=== PATIENT | male | born 1960 | race Caucasian/White ===

== ENCOUNTER 2016-12-16 08:37 | Inpatient (IN) | payer OTHER ==
[2016-12-07 10:33] VITALS: BMI 23.0
[2016-12-07 11:40] LABS: BASO % 0.2 %; BASO ABS # 0.01 K/uL (0-0.2); COMPLETE YES; EOS % 3.5 %; HEMATOCRIT 38.4 % (42-52); LYMPH % 26.2 %; LYMPH ABS # 1.36 K/uL (1.2-3.4); MEAN CELL VOLUME 85.9 fL (80-100); MEAN CORPUSCULAR HEMOGLOBIN 32.2 pg (25-34); MEAN CORPUSCULAR HGB CONC 37.5 g/dl (32-36); MEAN PLATELET VOLUME 9.3 fL (7.4-10.4); MONO % 8.8 %; NEUT % 61.3 %; PLATELET COUNT 204 K/uL (130-400); RED BLOOD COUNT 4.47 M/uL (4.7-6.1)
[2016-12-07 11:46] LABS: URINE APPEARANCE CLEAR (CLEAR); URINE BILIRUBIN NEG (NEG); URINE COLOR YELLOW; URINE NITRITE NEG (NEG); URINE SPECIFIC GRAVITY 1.026 (1.000-1.030); UROBILINOGEN NEG (NEG)
[2016-12-07 11:51] LABS: MANUAL MICROSCOPIC REQUIRED? NO; REVIEW REQ? NO
--- NOTE | 2016-12-07 11:51 | DIAGNOSTIC IMAGING REPORT ---
TWO VIEW CHEST CLINICAL HISTORY: Preoperative examination. FINDINGS: PA and lateral chest radiographs are obtained. No prior studies are available for comparison at the time of dictation. The cardiomediastinal silhouette is unremarkable. The lungs and pleural spaces are clear. There is no pneumothorax. The bony thorax appears intact. IMPRESSION: No active disease in the chest. Electronically signed by: Ismael Johnson M.D. 12/07/2016 11:50 AM Dictated Date/Time: 12/07/2016 11:50 AM
[2016-12-07 12:12] LABS: BUN/CREATININE RATIO 18.7 (10-20); CALCIUM 8.7 mg/dl (8.5-10.1); CREATININE 0.93 mg/dl (0.60-1.40); POTASSIUM 4.3 mmol/L (3.5-5.1)
[~2016-12-16] VITALS: Ht 185.4 cm; Wt 80.4 kg
[2016-12-16] VITALS (17 sets, daily range): BP systolic 127–152; BP diastolic 75–94; PULSE 59–93; TEMP 36.3–36.6; O2SAT 96–100; Ht 185.4 cm; Wt 80.4 kg
[~2016-12-16 08:37] MED LIST: CEFAZOLIN 2000 MG/60 ML D5W IV SCH; LACTATED RINGER'S 1000ML 1,000 ML IV SCH; PROPOFOL IV EMULSION 10 MG/ML 100 ML VIAL IV ONE
--- NOTE | 2016-12-16 09:16 | History & Physical Bridge Note ---
H&P Re-Evaluation Bridge Note: I have examined the patient, reviewed the History & Physical and in the interval since the performance of the History & Physical I have noted the following changes of clinical significance: No changes noted
--- NOTE | 2016-12-16 09:17 | History and Physical ---
History & Physical Date Dec 16, 2016. Chief Complaint neck and arm pain History of Present Illness The patient is a 56 year old male with complaints of Additional History Hepatic Disease: No Endocrine Disorder: No Kidney Disease: No Hypertension: No Heart Disease: No Bleeding Tendencies: No Infectious Diseases: No Allergies Coded Allergies: Acetaminophen (Verified Adverse Reaction, Unknown, SEVERE NAUSEA AND VOMITING, 12/16/16) Cephalexin (Verified Adverse Reaction, Unknown, NAUSEA/GI UPSET, 12/16/16) Oxycodone (Verified Adverse Reaction, Unknown, SEVERE NAUSEA AND VOMITING , 12/16/16) Home Medications No Active Prescriptions or Reported Meds Physical Examination Skin: warm/dry, no rash Eyes: normal inspection, EOMI, sclerae normal ENT: normal ENT inspection, pharynx normal Head: normocephalic, atraumatic Neck: supple, no adenopathy, trachea midline Respiratory/Chest: lungs clear, normal breath sounds, no respiratory distress Cardiovascular: regular rate, rhythm, no edema, no murmur Abdomen / GI: normal bowel sounds, non tender Back: normal inspection Extremities: normal inspection, normal range of motion Neurologic/Psych: no motor/sensory deficits, alert, normal reflexes, oriented x 3 Diagnosis cervical stenosis Plan of Treatment cervical corpectomy C4 fusion C3-5
[2016-12-16] MEDS ORDERED: MIDAZOLAM HCL 1 MG/ML 2ML VIAL ONE (09:42)
[2016-12-16] MEDS ORDERED: FENTANYL CITRATE INJ 50 MCG/1 ML 2 ML VIAL ONE ×2 (09:42→10:27)
[2016-12-16] MEDS ORDERED: REMIFENTANIL 1 MG VIAL ONE ×3 (09:43→11:50)
[2016-12-16] MEDS ORDERED: SODIUM CHLORIDE 0.9% PF 50 ML VIAL ONE (09:44)
[2016-12-16] MEDS ORDERED: BACITRACIN 50000 UNIT VIAL ONE (09:44)
[2016-12-16] MEDS ORDERED: NURSING VERBAL MED ORDER ONE (09:54)
[2016-12-16] MEDS ORDERED: CLINDAMYCIN 600 MG/54 ML D5W IV ONE (09:54)
[2016-12-16] MEDS ORDERED: MEPERIDINE HCL 25 MG/ML CARP IV PRN (10:00)
[2016-12-16] MEDS ORDERED: LABETALOL HCL IV 5 MG/ML 20ML IV PRN (10:00)
[2016-12-16] MEDS ORDERED: ONDANSETRON INJ 2 MG/ML 2 ML VIAL IV PRN ×2 (10:00→12:45)
[2016-12-16] MEDS ORDERED: EpHEDrine SULFATE INJ 50 MG/ML AMP IV PRN (10:00)
[2016-12-16] MEDS ORDERED: ATROPINE SULFATE 0.1 MG/ML 5ML SYR IV PRN (10:00)
[2016-12-16] MEDS ORDERED: HYDROmorphone INJ 1 MG/ML SYR IV PRN (10:00)
[2016-12-16] MEDS ORDERED: FENTANYL CITRATE INJ 50 MCG/1 ML 2 ML VIAL IV PRN (10:00)
[2016-12-16] MEDS ORDERED: HYDROmorphone INJ 2 MG/ML SYR/VIAL ONE ×2 (10:28→12:06)
[2016-12-16] MEDS ORDERED: ROCURONIUM BROMIDE 10 MG/ML 5 ML VIAL ONE (10:54)
[2016-12-16] MEDS ORDERED: SUCCINYLCHOLINE CHLORIDE 20 MG/ML 10 ML VIAL IV ONE (10:54)
[2016-12-16] MEDS ORDERED: PROPOFOL IV EMULSION 10 MG/ML 20 ML VIAL IV ONE (10:54)
[2016-12-16] MEDS ORDERED: DEXAMETHASONE SOD INJ 4 MG/ML VIAL ONE (10:54)
[2016-12-16] MEDS ORDERED: EpHEDrine SULFATE 50MG/5ML SYR ONE ×2 (10:54→12:30)
[2016-12-16] MEDS ORDERED: LIDOCAINE HCL 2% 2 ML VIAL (20MG/ML) ONE (10:54)
[2016-12-16] MEDS ORDERED: FLOSEAL HEMOSTATIC MATRIX 5ML TOP ONE (12:25)
[2016-12-16] MEDS ORDERED: NEOSTIGMINE METHYLSULFATE 1 MG/ML 10ML VIAL ONE (12:30)
[2016-12-16] MEDS ORDERED: GLYCOPYRROLATE INJ 0.2 MG/ML VIAL ONE (12:30)
[2016-12-16] MEDS ORDERED: ONDANSETRON INJ 2 MG/ML 2 ML VIAL ONE (12:30)
[2016-12-16] MEDS: SODIUM CHLORIDE 0.9% 1000ML 1,000 ML IV SCH (12:36)
--- NOTE | 2016-12-16 12:44 | [facility] Operative Report ---
Operative Report Operative Date Dec 16, 2016. Pre-Operative Diagnosis Cervical Stenosis Post-Operative Diagnosis same Procedure(s) Performed #1 anterior cervical corpectomy C4 #2 anterior cervical arthrodesis C3 3 to C5. #3 placement of locally harvested morcellized autograft combined with Anayeli bone grafting in the interbody cage. 4 application of ro plate and screws from C3 to C5. Surgeon Dr. Casey Low [employer] Settlement Processor Surgeon(s) Allie Brooks PA-C Estimated Blood Loss 250ml Findings Severe spinal stenosis. Specimens None per surgeon Description of Procedure Patient was moved preoperative case discussed dressed with a point patient was taken back to the operative suite after undergoing successful obesity (supine position gently with a Davis headholder. Spinal cord monitoring was utilized in baselines obtained. This point the insertion was much better. No sterile fashion with the assistance of fluoroscopy identified the see for vertebral body. A transverse incision was placed along the right anterior aspect of the cervical spine overlying this region. Dissection consistent fibrocartilage cartilage and exposing the anterior cervical spine from C3 to C5. Self-retaining retractor was placed. Complete discectomy of C3 4 was then performed out to the uncovertebral joints bilaterally followed by C45. [place] distractor pins were then placed in C3 and C5 to distract across the C4 vertebral body. Complete corpectomies and performed including removal of all posterior inner fibrous longitudinal ligaments. Severe stenosis was identified and addressed. At this point the endplates were burred subcortical bleeding bone and a 30 mm peek cage filled with locally harvested morcellized autograft in 20 bone grafting Position. Distracting of breast was removed the ro plate and screws applied with the assistance of fluoroscopy. Incision was then copiously irrigated and explored to ensure there is no definite fracture from a bleeding 10 on MIGUEL drain inserted. The incision then closed with 2-0 Vicryl fashion for medical final closure Steri-Strips are displaced patient awakened and taken to PACU in stable condition. Please note spinal cord monitoring was unchanged throughout the procedure. I attest to the content of the Intraoperative Record and any orders documented therein. Any exceptions are noted below.
[2016-12-16] MEDS ORDERED: MAGNESIUM HYDROXIDE SUSP 30 ML UDC PO PRN (12:45)
[2016-12-16] MEDS ORDERED: RACEPINEPHRINE 2.25% NEBU SOLN 0.5 ML VIAL INH PRN (12:45)
[2016-12-16] MEDS ORDERED: DO NOT ADMINISTER FLU VACCINE PRN ×3 (12:45)
[2016-12-16] MEDS ORDERED: DO NOT ADMINISTER PNEUMOCOCCAL VACCINE PRN ×2 (12:45)
[2016-12-16] MEDS ORDERED: LORAZEPAM 0.5 MG TAB PO PRN (12:45)
[2016-12-16] MEDS ORDERED: DiphenhydrAMINE HCL 50 MG/ML VIAL IV PRN (12:45)
[2016-12-16] MEDS ORDERED: DEXAMETHASONE INJ 8 MG in SYRINGE 0 ML IV PRN (12:45)
[2016-12-16] MEDS ORDERED: LORAZEPAM INJ 0.5 MG in SYRINGE 0.75 ML IV PRN (12:45)
[2016-12-16] MEDS ORDERED: NALOXONE HCL 0.4 MG/1 ML VIAL/CARP IV PRN (12:45)
[2016-12-16] MEDS ORDERED: HYDROmorphone INJ 0.5 MG/0.5 ML SYR IV PRN (12:45)
--- NOTE | 2016-12-16 12:50 | DIAGNOSTIC IMAGING REPORT ---
CERVICAL 2 OR 3 VIEWS CLINICAL HISTORY: 56 year-old Male presenting with ACDF C3-C5/ C4 CORPECTOMY. TECHNIQUE: 2 fluoroscopic spot images of the cervical spine were performed as part of a surgical procedure including frontal and lateral views. COMPARISON: None. FINDINGS/IMPRESSION: Grossly normal cervical alignment. Anterior plate and screw fixation in place reportedly spanning C3-C5. Hardware intact. Reported corpectomy of C4 not well delineated on these fluoroscopic images. Please see the separately dictated surgical report for further procedural details. Electronically signed by: Michael Luna 12/16/2016 12:49 PM Dictated Date/Time: 12/16/2016 12:42 PM
--- NOTE | 2016-12-16 13:58 | Anesthesiology Progress Note ---
Anesthesia Post Op Note Date & Time Dec 16, 2016 at 13:58 Vital Signs Pain Intensity: 0 Vital Signs Past 12 Hours Date Time Temp Pulse Resp B/P (MAP) Pulse Ox O2 Delivery O2 Flow Rate FiO2 12/16/16 13:45 36.2 71 16 143/66 100 Nasal Cannula 2 12/16/16 13:35 36.2 67 18 146/91 100 Nasal Cannula 2 12/16/16 13:25 76 18 147/90 100 Nasal Cannula 3 12/16/16 13:15 66 18 151/88 100 Nasal Cannula 3 12/16/16 13:05 73 18 140/82 98 Mask 10 12/16/16 12:55 80 18 138/86 99 Mask 10 12/16/16 12:47 36.3 75 12 137/84 99 Mask 10 12/16/16 09:11 36.6 59 18 141/87 99 Room Air Notes Mental Status: alert / awake / arousable, participated in evaluation Pt Amnestic to Procedure: Yes Nausea / Vomiting: adequately controlled Pain: adequately controlled Airway Patency, RR, SpO2: stable & adequate BP & HR: stable & adequate Hydration State: stable & adequate Anesthetic Complications: no major complications apparent
--- NOTE | 2016-12-16 15:06 | Discharge Instructions ---
Discharge Instructions Date of Service Dec 16, 2016. Admission Reason for Admission: Cervical Spinal Stenosis Discharge Discharge Diagnosis / Problem: cervical stenosis Discharge Goals Goal(s): Improve function Activity Recommendations Activity Limitations: per Instructions/Follow-up section . Instructions / Follow-Up Instructions / Follow-Up ACTIVITY RECOMMENDATIONS: SELF CARE INSTRUCTIONS AFTER CERVICAL FUSIONS 1. No smoking. Smoking drastically decreases the chance of a solid fusion. 2. No bending, lifting more than 5 pounds, or twisting (roll like a log when turning in bed). 3. You may shower 3 days after surgery. Thoroughly dry wound. Do not soak in the tub. 4. Cervical collar: Must be worn at all times including sleeping. You may remove the brace only to bath, eat and if you are sitting in a recliner. 5. Please walk as much as you can for exercise. Gradually increase the distance that you walk as your endurance increases. SPECIAL CARE INSTRUCTIONS: VERY IMPORTANT TO READ AND REVIEW A. Do not take any anti-inflammatory medications (i.e. Indocin, Advil, Aspirin, Naprosyn, Aleve, Motrin, etc.) as these may inhibit the chance of a solid fusion. Tylenol is okay to take. B. Your surgical incision has been closed with a cosmetic suture under the skin that will dissolve in about 6 weeks. In 14 days, you can use a pair of clean scissors and cut the suture that is left outside of the skin at the ends of your incision. C. Complications are uncommon, but please contact us if you have any signs or symptoms of: 1. wound infection (fever higher than 102.5 degrees F, redness, separation of wound, drainage, or increasing pain from the incision) 2. blood clots in legs (pain, swelling, redness and warmth in legs) 3. urinary tract infection (fever higher than 102.5 degrees, burning upon urination or increased frequency of urination) 4. nerve problems (inability to walk on your toes or heels, numbness, loss of bowel or bladder control) 5. any other symptoms that concern you. D. Please call the office at if you have any concerns or questions about your operation or recovery. MANAGING PAIN AFTER SPINAL SURGERY 1. Narcotic medication is intended for short-term use and will be provided for surgical pain. Surgical pain usually lasts for a period of 4-6 weeks. Narcotic medication includes Percocet, Vicodin, Darvocet, Tylenol #3 or Lortab. 2. Longer-term pain is more appropriately treated with non-narcotic medication such as Tylenol ES. 3. Muscle spasm is not appropriately treated with narcotics. Muscle relaxers such as Soma, Flexeril or Skelaxin can be used along with Tylenol ES. 4. Remember that we all live with some "aches and pains". This is not unusual or uncommon after an injury or as we get older. 5. We will provide appropriate medication within the normal guidelines of their prescribed use. We will also be very cautious and aware of potential abuse and extended duration of patients' medication needs. 6. Please allow 2-3 days to process refills. Prescriptions will not be mailed but must be picked up at the office. FOLLOW UP VISIT: Keep your scheduled follow-up appointment. Any questions, please call the office at . Current Hospital Diet Patient's current hospital diet: Clear Liquid Diet Discharge Diet Recommended Diet: Regular Diet Procedures Procedures Performed: C3-C5 Anterior Cervical Discectomy and Fusion, Removal of Intervertebral Disc/Decompression, Placement of Prosthetic Spacer/Allograft, Anterior Plate and Screw Fixation, C4 Corpectomy; Application of Anayeli Pending Studies Studies pending at discharge: no Medical Emergencies . Who to Call and When: Medical Emergencies: If at any time you feel your situation is an emergency, please call 911 immediately. . Non-Emergent Contact Non-Emergency issues call your: Primary Care Provider . "Provider Documentation" section prepared by Casey Low. . VTE Core Measure Inpt VTE Proph given/why not?: Saba Quintanilla, SCD's
[2016-12-16] MEDS ORDERED: SCOPOLAMINE 1.5 MG TDSY TD SCH (15:30)
[2016-12-16] MEDS: CHECK SCOPOLAMINE PATCH PLACEMENT SCH ×2 (15:46→23:05)
[2016-12-16] MEDS: CLINDAMYCIN IV 600 MG in DEXTROSE 5% 50ML 50 ML IV SCH (18:29)
[2016-12-16] MEDS: DEXAMETHASONE INJ 6 MG in SYRINGE 0 ML IV SCH (19:37)
[2016-12-16] MEDS: DOCUSATE SODIUM 100 MG CAP PO SCH (21:16)
[2016-12-17] VITALS (10 sets, daily range): BP systolic 135–146; BP diastolic 76–86; PULSE 82–97; TEMP 36.3–36.7; O2SAT 96–99
[2016-12-17] MEDS: SODIUM CHLORIDE 0.9% 1000ML 1,000 ML IV SCH (01:11)
[2016-12-17] MEDS: DEXAMETHASONE INJ 6 MG in SYRINGE 0 ML IV SCH ×2 (01:11→09:31)
[2016-12-17] MEDS: CLINDAMYCIN IV 600 MG in DEXTROSE 5% 50ML 50 ML IV SCH ×2 (01:11→09:31)
[2016-12-17] MEDS: CHECK SCOPOLAMINE PATCH PLACEMENT SCH (07:05)
--- NOTE | 2016-12-17 08:17 | Anesthesiology Progress Note ---
Anesthesia Post Op Note Date & Time Dec 17, 2016 at 08:16 Vital Signs Vital Signs Past 12 Hours Date Time Temp Pulse Resp B/P (MAP) Pulse Ox O2 Delivery O2 Flow Rate FiO2 12/17/16 06:59 84 16 97 Room Air 12/17/16 05:18 36.4 87 17 135/81 99 Nasal Cannula 2.0 Humidified Oxygen 12/17/16 03:35 96 16 98 Nasal Cannula 2.0 12/17/16 03:13 36.7 97 17 145/78 99 Nasal Cannula 2.0 Humidified Oxygen 12/17/16 01:18 36.4 93 17 146/82 98 Nasal Cannula 2.0 Humidified Oxygen 12/16/16 23:14 92 16 98 Nasal Cannula 2.0 12/16/16 23:05 36.5 93 17 145/86 98 Nasal Cannula 2.0 Humidified Oxygen 12/16/16 23:03 98 Nasal Cannula 2.0 Humidified Oxygen 12/16/16 21:16 36.3 84 20 139/81 99 Nasal Cannula 2.0 Humidified Oxygen Notes Mental Status: alert / awake / arousable, participated in evaluation Pt Amnestic to Procedure: Yes Nausea / Vomiting: adequately controlled Pain: adequately controlled Airway Patency, RR, SpO2: stable & adequate BP & HR: stable & adequate Hydration State: stable & adequate Anesthetic Complications: no major complications apparent
[2016-12-17] MEDS: DOCUSATE SODIUM 100 MG CAP PO SCH (09:32)
--- NOTE | 2016-12-17 10:56 | Discharge Summary ---
Orthopedic Discharge Summary Admission Date/Reason Dec 16, 2016 at 09:30 Cervical Spinal Stenosis. Discharge Date/Disposition Dec 17, 2016 Home Diagnosis Principal Diagnosis: Cervical stenosis Admission Physical Exam As per Admitting History & Physical. Hospital Course Patient underwent anterior cervical decompression fusion. Tolerated this well swallowing without difficulty no hoarseness. Arm symptoms improved. Subsequently discharged home. Discharge Instructions Please refer to the electronic Patient Visit Report (Discharge Instructions) for additional information.
[2016-12-18] MEDS ORDERED: BISACODYL 10 MG SUPP PR PRN (06:00)
[2016-12-18] MEDS ORDERED: BISACODYL 5 MG TABEC PO PRN (06:00)
[2016-12-18] MEDS ORDERED: POLYETHYLENE (MIRALAX) 17 GM PACK PO SCH (09:00)
== END 2016-12-17 10:50 | disposition home or self-care (01) | DRG 473 ==
LOC: C.ACU 08:37 → C.3E 09:30 → ENRESERV 14:02
PROVIDERS: ADMIT Orthopaedic Surgery Orthopaedic Surgery of the Spine; ATTEND Orthopaedic Surgery Orthopaedic Surgery of the Spine
PROC: 0RG20A0 Fusion of 2 or more Cervical Vertebral Joints with Interbody Fusion Device, Anterior Approach, Anterior Column, Open Approach (ICD-10-PCS; principal; 2016-12-16 10:15)
PROC: 0RT30ZZ Resection of Cervical Vertebral Disc, Open Approach (ICD-10-PCS; principal; 2016-12-16 10:15)
DX: M48.02 Spinal stenosis, cervical region (principal); Z88.6 Allergy status to analgesic agent; Z88.5 Allergy status to narcotic agent; Z88.1 Allergy status to other antibiotic agents

== ENCOUNTER 2021-12-01 10:04 | Inpatient (IN) ==
--- NOTE | 2021-11-10 21:01 | PAT Medication Instructions ---
Medication Instructions Date of Service November 10, 2021 Home Medications ALICIA 50 mg-5HTP 50 mg-theanine 50 mg-taur 150 pr-convifca-emb capsule 1 cap PO HS aspirin 81 mg tablet,delayed release 81 mg PO QAM cholecalciferol (vitamin D3) 25 mcg (1,000 unit) tablet (Vitamin D3) 25 mcg PO QAM magnesium 250 mg tablet 250 mg PO PM metoprolol succinate 25 mg tablet,extended release 24 hr 25 mg PO PM sacubitril 49 mg-valsartan 51 mg tablet (Entresto) 1 tab PO BID tamsulosin 0.4 mg capsule 0.4 mg PO PM ASK your prescriber and surgeon aspirin 81 mg tablet,delayed release 81 mg PO QAM STOP taking 2 weeks before surgery (or as soon as possible if surgery is within 2 weeks) ALICIA 50 mg-5HTP 50 mg-theanine 50 mg-taur 150 nl-tuomrggb-tmk capsule 1 cap PO HS DO NOT take the morning of surgery cholecalciferol (vitamin D3) 25 mcg (1,000 unit) tablet (Vitamin D3) 25 mcg PO QAM Take evening before surgery magnesium 250 mg tablet 250 mg PO PM metoprolol succinate 25 mg tablet,extended release 24 hr 25 mg PO PM sacubitril 49 mg-valsartan 51 mg tablet (Entresto) 1 tab PO BID tamsulosin 0.4 mg capsule 0.4 mg PO PM Other Notes If you have any questions please call us at [phone] or [phone] or [phone] or [phone]
--- NOTE | 2021-11-12 15:33 | Anesthesiology Consultation ---
Date of Service November 12, 2021 Assessment & Plan (1) Encounter for pre-operative examination: Chart Review Chart Review: Acceptable Risk for Surgery (pending UA, PCP clearance (11/18/21) and preop Covid testing results ) and Patient seen in Pre Admission Testing - Unable to urinate at PAT appt- will drop off at [facility] or Dr. Vences (PCP) office -Awaiting PCP clearance scheduled 11/18/21 Per PAT appt on 11/12/21, patient denies any recent travel or large group activities. No known Covid positive exposures or Covid related symptoms. No known Covid infection in the past 90 days. Pt is vaccinated for Covid. Preop Covid testing scheduled 11/27/21= will await results. Educated on importance of self quarantining, social distancing and wearing mask in public for the patient one week prior to surgery and after Covid testing done Per cardio clearance note 11/05/2021 = moderate risk for complications during proposed surgery. Last seen by cardio in office 08/26/21= patient seen for follow-up EP evaluation. History of PVCs status post ablation November 2020. Significant reduction of PVC burden status post ablation. History of nonischemic cardiomyopathy and hypertension. Nonischemic cardiomyopathycardiac MRI 2020 showed severely dilated left ventricle with moderate global hypokinesis. LVEF 37%. LGE consistent with nontransmural basal inferior lateral infarct (out of proportion to the degree of cardiomyopathy). No evidence of myocardial iron overload. Mildly dilated right ventricle with reduced systolic function. 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 On metoprolol and Entresto. Repeat echo earlier this month showed LVEF of 45%. BP at goal. History Surgery Operation Date: 12/01/21 09:35 Proposed Procedures p L4-S1 Decompression Fusion, Spinal Cord Monitoring - Casey Low DO Height/Weight Height: 6 ft 2 in Weight: 83 kg Allergies Allergy/AdvReac Type Severity Reaction Status Date / Time cephalexin AdvReac Unknown Nausea, GI Verified 11/11/21 09:53 upset oxycodone AdvReac Unknown Severe N/V Verified 11/11/21 09:53 Medications Home Medications Medication Instructions Recorded Confirmed Last Taken ALICIA 50 mg-5HTP 50 mg-theanine 50 1 cap PO HS 11/07/21 11/07/21 Unknown mg-taur 150 km-ycavikqc-nxa capsule aspirin 81 mg tablet,delayed 81 mg PO QAM 11/07/21 11/07/21 Unknown release cholecalciferol (vitamin D3) 25 25 mcg PO QAM 11/07/21 11/07/21 Unknown mcg (1,000 unit) tablet (Vitamin D3) magnesium 250 mg tablet 250 mg PO PM 11/07/21 11/07/21 Unknown metoprolol succinate 25 mg 25 mg PO PM 11/07/21 11/07/21 Unknown tablet,extended release 24 hr sacubitril 49 mg-valsartan 51 mg 1 tab PO BID 11/07/21 11/07/21 Unknown tablet (Entresto) tamsulosin 0.4 mg capsule 0.4 mg PO PM 11/07/21 11/07/21 Unknown Past Medical History Medical History Acid reflux Mild > no meds Stable and controlled BPH (benign prostatic hyperplasia) Cervical stenosis of spinal canal Numbness in arms at times History of COVID-19 05/2020 Possible ischemic CM may have resulted from Covid Kidney stones No recent issues 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 Serna with [facility] PVCs (premature ventricular contractions) S/p ablation 11/2020 per cardio records - significant reduction in PVC burden Exercise / Class Metabolic Activity II 4-5 Yardwork/Stairs/Walk up hill (one flight of stairs - no chest pain or SOB ) Past Family History Family History Father Colon cancer Past Surgical History Surgical History H/O cardiac radiofrequency ablation November 2020 > [facility] History of arthroscopy knee x2 History of cardiac cath August 2020 > no stents > [facility] History of colonoscopy Hx of fusion of cervical spine approx 7 yrs ago > ROM not limited per pt's report Hx of hand surgery left > tendon repair from work accident Past Anesthesia History No Hx of Anesthesia Complications (with exception to PONV and one episode of agitation post op ) and No Family Hx of Anesthesia Complications History of PONV No Hx of Motion Sickness and History of PONV (improved with IV anti nausea medication ) Social History Smoking Status: Never smoker Do You Dip or Chew Tobacco: No Hx Alcohol Use: No Hx Substance Use: No substance use type: does not use Review of Systems Cough - resolved - felt due to post nasal drip Occ snoring - no witnessed apnea - no hx of sleep study Patient denies chest pain, shortness of breath, dyspnea on exertion, wheezing, palpitations. No hx of seizures, stroke, VT. No hx of blood clots or blood transfusions Physical Exam Vital Signs VITALS BP 91/52 (confirmed with manual cuff; occ dizziness with position changes- pt will monitor BP at home- if low- will follow up with cardio or PCP) P 64 TEMP 97.8 SP02 96% RESP 16 Constitutional no acute distress ENMT Mouth: no TMJ clicking Thyromental Distance: > or= 3.5 Finger Breadths (3.5) Mallampati Class: II Top front permanent bridge Neck + limited neck extension (significant) Respiratory normal respiratory effort; no respiratory distress Auscultation: lungs clear to auscultation bilaterally; no wheezes Cardiovascular Rate/Rhythm: regular rate and regular rhythm Heart Sounds: no murmur Vessels: no carotid bruit Musculoskeletal Spine: + pain with cervical ROM (mild) Extremities: extremities normal to inspection Psychiatric Orientation: alert Lab Results Anesthesia Preop Results Results Anesthesia Widget: WBC 5.00 K/uL (4.8-10.8) 11/12/21 Hgb 13.4 g/dL (14.0-18.0) L 11/12/21 Hct 38.7 % (42-52) L 11/12/21 Plt 238 K/uL (130-400) 11/12/21 Na 138 mmol/L (136-145) 11/12/21 K 4.3 mmol/L (3.5-5.1) 11/12/21 Cl 108 mmol/L (98-107) H 11/12/21 CO2 23 mmol/L (21-32) 11/12/21 BUN 26 mg/dl (6-23) H 11/12/21 Creat 1.00 mg/dl (0.6-1.4) 11/12/21 Glucose Level 98 mg/dl (70-99(Fasting)) 11/12/21 PT 10.5 Seconds (9.0-12.0) 11/12/21 PTT 27.4 Seconds (21.0-31.0) 11/12/21 INR 1.0 (0.9-1.1) 11/12/21 Blood Type O Positive 11/12/21 Antibody Screen NEGATIVE 11/12/21 Testing Electrocardiogram Date: 11/12/21 Findings: + NSR @ (64bpm ) Normal EKG per cardio Chest X-Ray Date: 10/27/21 Findings: + NAD Echocardiogram Date: 08/13/21 EF: 45% Other Findings: no LVH or no diastolic dysfunction Mild right and left atrial enlargement Moderate ventricular enlargement LV systolic function is mildly depressed. Wall motion analysis reveals abnormal wall motion with global hypokinesis. Mitral valve shows a prolapse. Mild to moderate MR. Mild TR. Mild AR. Stress Test Date: 07/30/20 Type: nuclear Cardiomyopathy with enlargement of the left ventricular chamber. Hypokinesis of all segments of the left ventricular wall. EF was just diminished at 36%. No definite findings for scar or reversible ischemia seen. Cardiac Catheterization Date: 08/15/20 LM = no angiographically significant disease LAD = no angiographically significant disease Left circumflex = no angiographically significant disease RCA = no angiographically significant disease Impression nonischemic cardiomyopathy. Normal LV and RV filling pressures.
[~2021-12-01 10:04] MED LIST changes: +ACETAMINOPHEN 500 MG TAB PO SCH; -CEFAZOLIN 2000 MG/60 ML D5W IV SCH; +CeleBREX 200 MG CAP PO SCH; +GABAPENTIN 600 MG DOSE PO SCH; -LACTATED RINGER'S 1000ML 1,000 ML IV SCH; +LR 15ML/HR IV SCH; -PROPOFOL IV EMULSION 10 MG/ML 100 ML VIAL IV ONE; +ceFAZolin 2000MG 2,000 MG/15 ML SYR IV SCH
[2021-12-01] MEDS ORDERED: MIDAZOLAM HCL 1 MG/ML 2ML VIAL ONE (11:04)
[2021-12-01] MEDS ORDERED: fentaNYL citrate 100 MCG/2 ML VIAL ONE (11:04)
[2021-12-01] MEDS ORDERED: SCOPOLAMINE 1 MG TDSY TD ONE ×2 (12:12→12:13)
--- NOTE | 2021-12-01 12:12 | History & Physical Bridge Note ---
Date of Service December 01, 2021 History & Physical Bridge Note I have examined the patient, reviewed the History & Physical and in the interval since the performance of the History & Physical I have noted the following changes of clinical significance: no changes noted
[2021-12-01] MEDS ORDERED: ONDANSETRON INJ 2 MG/ML 2 ML VIAL IV PRN ×2 (12:13→17:01)
[2021-12-01] MEDS ORDERED: HYDROmorphone INJ 1 MG/ML SYRINGE IV PRN ×2 (12:13→17:01)
[2021-12-01] MEDS ORDERED: ATROPINE SULFATE 0.1 MG/ML 10ML SYR IV PRN (12:13)
[2021-12-01] MEDS ORDERED: PROMETHAZINE HCL 12.5 MG in SODIUM CHLORIDE 0.9% 50 ML IV PRN ×2 (12:13→17:01)
--- NOTE | 2021-12-01 12:13 | History & Physical Report ---
Date of Service December 01, 2021 Assessment & Plan (1) Neurogenic claudication due to lumbar spinal stenosis: Plan: L4-S1 decompression and fusion History of Present Illness Chief Complaint: Back and leg pain Primary Care Provider: Girma Vences MD This is a 61-year-old female well-known to me the presents with car persistent back and leg pain. Failing course of nonoperative care is here for surgical intervention. Allergies Allergy/AdvReac Type Severity Reaction Status Date / Time cephalexin AdvReac Unknown Nausea, GI Verified 12/01/21 10:27 upset oxycodone AdvReac Unknown Severe N/V Verified 12/01/21 10:27 Home Medications Medication Instructions Recorded Confirmed Type aspirin 81 mg tablet,delayed 81 mg PO QAM 11/07/21 12/01/21 History release cholecalciferol (vitamin D3) 25 25 mcg PO QAM 11/07/21 12/01/21 History mcg (1,000 unit) tablet (Vitamin D3) magnesium 250 mg tablet 250 mg PO PM 11/07/21 12/01/21 History metoprolol succinate 25 mg 25 mg PO PM 11/07/21 12/01/21 History tablet,extended release 24 hr sacubitril 49 mg-valsartan 51 mg 1 tab PO BID 11/07/21 12/01/21 History tablet (Entresto) tamsulosin 0.4 mg capsule 0.4 mg PO PM 11/07/21 12/01/21 History Past Med/Surg History Medical History Acid reflux Mild > no meds Stable and controlled BPH (benign prostatic hyperplasia) Cervical stenosis of spinal canal Numbness in arms at times History of COVID-19 05/2020 Possible ischemic CM may have resulted from Covid Kidney stones No recent issues 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 Serna with [facility] PVCs (premature ventricular contractions) S/p ablation 11/2020 per cardio records - significant reduction in PVC burden Surgical History H/O cardiac radiofrequency ablation November 2020 > [facility] History of arthroscopy knee x2 History of cardiac cath August 2020 > no stents > [facility] History of colonoscopy Hx of fusion of cervical spine approx 7 yrs ago > ROM not limited per pt's report Hx of hand surgery left > tendon repair from work accident Family History Father Colon cancer Social History Smoking Status: Never smoker Second Hand Exposure: No; Do You Dip or Chew Tobacco: No; Tobacco Cessation Education Requested by Patient: No Hx Alcohol Use: No Hx Substance Use: No Preferred Language: Icelandic Communication Ability: Effective Store Sales Leader Required: No Beliefs That Will Affect Care: None Current Living Situation: Spouse Other Information That Helps Us Care for You: No Feels Safe at Home: Yes Safety Concerns: Feels Safe At This Time Assistive Devices: Glasses Assistive Devices Comment: dental bridge Physical Exam Physical Exam: Patient is alert and oriented Heart regular in rhythm Lungs clear Results & Data Results & Data ([facility]) Vital Signs (Past 12 Hours) Vital Signs Temp Pulse Resp BP Pulse Ox 12/01/21 10:34 36.5 C 62 18 120/73 98
[2021-12-01] MEDS ORDERED: ceFAZolin 330 MG/ML 1 GM VIAL ONE (12:25)
[2021-12-01] MEDS ORDERED: BUPIVACAINE/EPINEPHRINE 0.25% 1:200,000 30 ML VIAL ONE (12:25)
[2021-12-01] MEDS ORDERED: HYDROmorphone INJ 2 MG/ML SYR/VIAL ONE (13:17)
[2021-12-01] MEDS ORDERED: DEXAMETHASONE SOD INJ 4 MG/ML VIAL ONE (13:18)
[2021-12-01] MEDS ORDERED: GLYCOPYRROLATE 0.2 MG/ML VIAL ONE (13:18)
[2021-12-01] MEDS ORDERED: LIDOCAINE 2% 2 ML VIAL/AMP(20MG/ML) INFIL ONE (13:18)
[2021-12-01] MEDS ORDERED: ONDANSETRON INJ 2 MG/ML 2 ML VIAL ONE (13:18)
[2021-12-01] MEDS ORDERED: ROCURONIUM BROMIDE 10 MG/ML 5 ML VIAL IV ONE (13:18)
[2021-12-01] MEDS ORDERED: PROPOFOL IV EMULSION 10 MG/ML 20 ML VIAL IV ONE (13:18)
[2021-12-01] MEDS ORDERED: LARYING-O-JET KIT (LTA) ONE (13:18)
[2021-12-01] MEDS ORDERED: NEOSTIGMINE METHYLSULFATE 1 MG/ML 10ML VIAL ONE (13:18)
[2021-12-01] MEDS ORDERED: diphenhydrAMINE 50 MG/ML VIAL ONE (13:20)
[2021-12-01] MEDS ORDERED: METOCLOPRAMIDE HCL INJ 5 MG/ML 2 ML VIAL ONE (13:20)
[2021-12-01] MEDS ORDERED: FLOSEAL HEMOSTATIC MATRIX 10ML TOP ONE (13:20)
--- NOTE | 2021-12-01 14:21 | Electrocardiogram Report ---
Test Reason : Blood Pressure : / mmHG Vent. Rate : 063 BPM Atrial Rate : 063 BPM P-R Int : 138 ms QRS Dur : 102 ms QT Int : 410 ms P-R-T Axes : -12 007 -09 degrees QTc Int : 419 ms Normal sinus rhythm Normal ECG When compared with ECG of 12-NOV-2021 15:12, T wave inversion now evident in Inferior leads Confirmed by Chidi Echavarria ([id number]) on 12/01/2021 2:21:34 PM Referred By: Casey Low Confirmed By:Chidi Echavarria
--- NOTE | 2021-12-01 14:51 | Operative Report ---
Post Operative Report Pre & Post Diagnosis Operation Date: 12/01/21 11:55 Pre-Op Diagnosis: Neurogenic claudication due to lumbar spinal stenosis Post-Op Diagnosis: Neurogenic claudication due to lumbar spinal stenosis I identified the patient and participated in the time-out.: Yes Procedure Operation Date: 12/01/21 11:55 Actual Procedures #1 lumbar decompression bilateral medial facetectomies and foraminotomies L3-L4, L4-5 and L5-S1. #2 posterior spinal fusion L4-L5 L5-S1. #3 placement posterior instrumentation L4-L5 L5-S1. #4 interbody fusion L4-L5 L5-S1. #5 placement of Spira 14 x 26 mm cage at L4-L5 L5-S1. #6 placement locally harvested morselized autograft in the posterior gutters. #7 placement of I factor combined with V toss in the interbody space and posterior gutters. Surgeon Casey Low, Smoke Jumper Supervisor Allie Johns Estimated Blood Loss 100 Findings Consistent with Post-Op Diagnosis Specimens None Indications This is a 61-year-old male who presents above-mentioned diagnosis after failing course of nonoperative care is here for surgical invention. Description of Procedure Patient was met with identified informed consent obtained. Patient was then taken to the operative suite underwent ablation placed in a prone position the [place] table top Earle frame. All bony prominences well-padded eyes inspected to ensure no external pressure placed on the bed this point lumbar spine was prepped and draped no sterile fashion. Sharp dissection with the assistance of Bovie cautery was performed down to and exposing the lamina and transverse processes of L4-L5 and sacral ala bilaterally. From a caudal to cephalad fashion complete laminectomy of L5 L4 and partial laminectomy of L3 was performed including bilateral medial facetectomies and foraminotomies addressing severe spinal stenosis. Pedicle screws in place at L4-L5 and S1 levels bilaterally with assistance of fluoroscopy and appropriately sized antonino placed. By way of a transforaminal portion right complete discectomy of L5-S1 was performed endplates curetted to subcortical being bone and a 14 x 26 mm spiral cage with I factor tapped in position. Then proceeded to L4-L5 and again by way of a transforaminal approach on the right complete discectomy performed endplates curetted to subcortical bleeding bone and a 14 x 26 mm spiral cage with I factor tapped in position. The rods were then compressed locked into final position bilaterally. The transverse processes of L4-L5 and sacral ala burred to subcortical bleeding bone. I factor combined with V toss and locally harvested morselized autograft was placed in the posterior gutters. 15 round MIGUEL drain inserted. The incision was then closed with 1 Vicryl in the fascia 2-0 Vicryl subcutaneously and 4 Monocryl for final skin closure. Steri-Strip sterile dressings placed. Patient waken taken to PACU stable condition. Please note spinal cord monitoring was utilized at the procedure no changes noted. Lastly Allie Johns was present out the entire surgery and while the patient positioning complex portions of the surgery and fascial closure. I attest to the content of the Intraoperative Record and any orders documented therein. Any exceptions are noted below.
--- NOTE | 2021-12-01 14:59 | Fluoroscopy Report ---
FL lumbar spine 2-3V CLINICAL HISTORY: L4-S1 DFI COMPARISON STUDY: None. FLUOROSCOPY TIME: 27 seconds. FLUOROSCOPIC IMAGES: 2 FINDINGS: Fluoroscopy was provided during L4-L5 and L5-S1 discectomies with interbody spacer placemen t with posterior decompression and bilateral pedicle screw fusion. Hardware is intact. IMPRESSION: Fluoroscopy provided during L4-S1 discectomy, posterior decompression and bilateral pedi terri screw fusion. ACT 112: Negative or not required by law. Electronically signed by: Sukhdev Calabrese M.D. 12/01/2021 2:57 PM
--- NOTE | 2021-12-01 16:46 | Anesthesiology Progress Note ---
Date of Service December 01, 2021 Anesthesia Post Procedure Vital Signs Vital Signs: Temp Pulse Pulse Resp BP Pulse Ox 12/01/21 16:30 54 L 19 102/67 95 12/01/21 16:15 36.4 C L 58 L 14 107/61 95 12/01/21 16:00 57 L 13 108/56 L 96 12/01/21 15:50 36.4 C L 55 L 14 108/51 L 99 12/01/21 15:40 54 L 16 107/60 99 12/01/21 15:30 53 L 16 110/62 99 12/01/21 15:20 56 L 15 113/62 97 12/01/21 15:12 36.0 C L 64 16 108/61 100 12/01/21 10:34 36.5 C 62 18 120/73 98 Transfer of Care Handoff Completed per policy Notes Mental Status: alert / awake / arousable Patient Amnestic to Procedure: Yes Nausea / Vomiting: adequately controlled Pain: adequately controlled Airway Patency, RR, SpO2: stable & adequate BP & HR: stable & adequate Hydration State: stable & adequate Anesthetic Complications: no major complications apparent
[2021-12-01] MEDS ORDERED: LORazepam 0.5 MG in SYRINGE 0.25 ML IV PRN (17:01)
[2021-12-01] MEDS ORDERED: ONDANSETRON 4 MG OD TAB PO PRN (17:01)
[2021-12-01] MEDS ORDERED: FAMOTIDINE 20 MG TAB PO PRN (17:01)
[2021-12-01] MEDS ORDERED: ALUMINUM/MAGNESIUM SUSP 30 ML UDC PO PRN (17:01)
[2021-12-01] MEDS ORDERED: SOD PHOSPHATE/SOD BIPHOSPHATE ENEMA 132 ML BTL PR PRN (17:01)
[2021-12-01] MEDS ORDERED: DO NOT ADMINISTER FLU VACCINE PRN (17:01)
[2021-12-01] MEDS ORDERED: NALOXONE HCL 0.4 MG/1 ML VIAL/CARP IV PRN (17:01)
[2021-12-01] MEDS ORDERED: MAGNESIUM HYDROXIDE SUSP 30 ML UDC PO PRN (17:01)
[2021-12-01] MEDS ORDERED: METOCLOPRAMIDE HCL INJ 5 MG/ML 2 ML VIAL IV PRN (17:01)
[2021-12-01] MEDS ORDERED: diphenhydrAMINE Capsule 25 MG CAP PO PRN (17:01)
[2021-12-01] MEDS ORDERED: HYDROCODONE/ACETAMOPHEN 5/325MG TAB PO PRN (17:01)
[2021-12-01] MEDS ORDERED: bisacodyL 10 MG SUPP PR PRN (17:01)
[2021-12-01] MEDS ORDERED: LORazepam 0.5 MG TAB PO PRN (17:01)
[2021-12-01] MEDS ORDERED: HYDROmorphone INJ 0.5 MG/0.5 ML SYR IV PRN (17:01)
[2021-12-01] MEDS ORDERED: DO NOT ADMINISTER PNEUMOCOCCAL VACCINE PRN (17:01)
[2021-12-01] MEDS ORDERED: hydrOXYzine HCl 25 MG TAB PO PRN (17:01)
[2021-12-01] MEDS ORDERED: ACETAMINOPHEN 1,000 MG/100 ML VIAL IV PRN (17:01)
[2021-12-01] MEDS: LACTATED RINGER'S 1,000 ML IV SCH (17:22)
[2021-12-01] MEDS: CHECK SCOPOLAMINE PATCH PLACEMENT SCH ×2 (17:22→22:44)
--- NOTE | 2021-12-01 20:34 | Hospitalist Consultation ---
Date of Consultation December 01, 2021 Assessment & Plan (1) Neurogenic claudication due to lumbar spinal stenosis: POD#0 L4-S1 decompression and fusion by Dr. Low Activity and wound care orders as per ortho Pain control with bowel regimen PT/OT Monitor H/H for acute blood loss anemia and transfuse blood products PRN EBL 100 cc (2) Non-ischemic cardiomyopathy: [place] to be tachycardia induced, most recent EF 45% Not on routine diuretics Continue Entresto and metoprolol (3) PVCs (premature ventricular contractions): S/p ablation Continue metoprolol (4) BPH (benign prostatic hyperplasia): Continue tamsulosin (5) DVT prophylaxis: TEDs/SCDs as per spine Ortho Thank you for this consultation. We will follow the patient with you during their hospital stay. You can reach a member of the [facility] Hospitalist Team 04/01 [facility] [place] [facility]. History of Present Illness Reason for Consultation: Postop medical management Requesting Physician: Dr. Low History of Present Illness 61-year-old male with PMH PVCs s/p ablation 11/2020, nonischemic cardiomyopathy EF 45%, HTN, BPH, and other problems listed below who is s/p L4-S1 decompression and fusion today by Dr. Low. Postoperative, the patient is doing well. He reports his pain is well controlled. Denies numbness, tingling, weakness of the lower extremities. No chest pain, shortness of breath, palpitations. Denies lightheadedness and dizziness. No abdominal pain or nausea. Whitlock catheter is in place draining clear yellow urine. Allergies Allergy/AdvReac Type Severity Reaction Status Date / Time cephalexin AdvReac Unknown Nausea, GI Verified 12/01/21 10:27 upset oxycodone AdvReac Unknown Severe N/V Verified 12/01/21 10:27 Home Medications Medication Instructions Recorded Confirmed Type aspirin 81 mg tablet,delayed 81 mg PO QAM 11/07/21 12/01/21 History release cholecalciferol (vitamin D3) 25 25 mcg PO QAM 11/07/21 12/01/21 History mcg (1,000 unit) tablet (Vitamin D3) magnesium 250 mg tablet 250 mg PO PM 11/07/21 12/01/21 History metoprolol succinate 25 mg 25 mg PO PM 11/07/21 12/01/21 History tablet,extended release 24 hr sacubitril 49 mg-valsartan 51 mg 1 tab PO BID 11/07/21 12/01/21 History tablet (Entresto) tamsulosin 0.4 mg capsule 0.4 mg PO PM 11/07/21 12/01/21 History Patient History Medical History Acid reflux Mild > no meds Stable and controlled BPH (benign prostatic hyperplasia) Cervical stenosis of spinal canal Numbness in arms at times History of COVID-19 05/2020 Possible ischemic CM may have resulted from Covid Kidney stones No recent issues 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 Serna with [facility] PVCs (premature ventricular contractions) S/p ablation 11/2020 per cardio records - significant reduction in PVC burden Surgical History H/O cardiac radiofrequency ablation November 2020 > [facility] History of arthroscopy knee x2 History of cardiac cath August 2020 > no stents > [facility] History of colonoscopy Hx of fusion of cervical spine approx 7 yrs ago > ROM not limited per pt's report Hx of hand surgery left > tendon repair from work accident Family History Father Colon cancer Social History Smoking Status: Never smoker Second Hand Exposure: No; Do You Dip or Chew Tobacco: No; Tobacco Cessation Education Requested by Patient: No Hx Alcohol Use: No Hx Substance Use: No Preferred Language: Telugu Communication Ability: Effective Registered Vascular Technologist (Rvt) Required: No Beliefs That Will Affect Care: None Current Living Situation: Spouse Other Information That Helps Us Care for You: No Feels Safe at Home: Yes Safety Concerns: Feels Safe At This Time Assistive Devices: Glasses Assistive Devices Comment: dental bridge Review of Systems Review of Systems: ROS per HPI, all other systems reviewed and negative Physical Exam Constitutional: WD/WN, vitals as above Eyes: PERRL, conjunctivae normal, anicteric sclerae ENMT: external ear and nose normal, oropharynx normal Respiratory: normal respiratory effort, lungs clear to auscultation Cardiovascular: Rate/Rhythm: regular rate and regular rhythm Vessels: normal peripheral pulses Extremities: no edema Gastrointestinal (Abdomen): normal bowel sounds, soft, nontender, no hepatosplenomegaly Musculoskeletal: no cyanosis or clubbing, extremities motor strength 5/5 S/p back surgery, drain in place draining bloody drainage, pedal pushes and pulls strong bilaterally Skin: no rashes, warm and dry Neurologic: PERRL, EOMI, accommodation nl, no face palsy, no dysarthria Psychiatric: A+Ox3, euthymic affect Results & Data Results & Data ([facility]) Vital Signs (Past 12 Hours) Vital Signs Temp Pulse Pulse Resp BP Pulse Ox 12/01/21 19:18 35.8 C L 92 H 16 124/56 L 96 12/01/21 18:18 88 16 119/63 94 12/01/21 17:24 36.3 C L 81 14 113/63 95 12/01/21 16:56 36.3 C L 56 L 16 129/67 94 12/01/21 16:45 76 18 110/53 L 96 12/01/21 16:30 54 L 19 102/67 95 12/01/21 16:15 36.4 C L 58 L 14 107/61 95 12/01/21 16:00 57 L 13 108/56 L 96 12/01/21 15:50 36.4 C L 55 L 14 108/51 L 99 12/01/21 15:40 54 L 16 107/60 99 12/01/21 15:30 53 L 16 110/62 99 12/01/21 15:20 56 L 15 113/62 97 12/01/21 15:12 36.0 C L 64 16 108/61 100 12/01/21 10:34 36.5 C 62 18 120/73 98
[2021-12-01] MEDS: METOPROLOL SUCC 25MG EXT REL TAB PO SCH (20:37)
[2021-12-01] MEDS: CLINDAMYCIN 600 MG in DEXTROSE 5% 50 ML IV SCH (20:38)
[2021-12-01] MEDS: MAGNESIUM OXIDE 400 MG TAB PO SCH (20:40)
[2021-12-01] MEDS: VALSARTAN/SACUBITRIL 51/49 MG TAB PO SCH (20:41)
[2021-12-01] MEDS: DOCUSATE SODIUM/SENNA 50/8.6MG TAB PO SCH (20:41)
[2021-12-01] MEDS: TAMSULOSIN HCL 0.4 MG CAP PO SCH (20:41)
[2021-12-02] MEDS: ACETAMINOPHEN 500 MG TAB PO PRN ×2 (00:08→18:49)
[2021-12-02] MEDS: LACTATED RINGER'S 1,000 ML IV SCH (03:44)
[2021-12-02] MEDS: POLYETHYLENE (MIRALAX) 17 GM PACK PO SCH ×3 (05:39→17:08)
[2021-12-02] MEDS: CLINDAMYCIN 600 MG in DEXTROSE 5% 50 ML IV SCH (05:41)
[2021-12-02 06:35] LABS: Hematocrit (blood only) 35.5 % (42-52); Immature Granulocytes # (auto) 0.03 K/uL (0.00-0.02); Immature Granulocytes % (auto) 0.3 %; Lymphocytes # (auto) 0.73 K/uL (1.2-3.4); Lymphocytes % (auto) 6.4 %; Mean Corpuscular Hemoglobin 30.3 pg (25-34); Mean Corpuscular Hgb Conc 33.8 g/dL (32-36); Mean Corpuscular Volume 89.6 fL (80-100); Mean Platelet Volume 9.4 fL (7.4-10.4); Monocytes # (auto) 0.66 K/uL (0.11-0.59); Monocytes % (auto) 5.7 %; Neutrophils # (auto) 10.06 K/uL (1.4-6.5); Neutrophils % (auto) 87.6 %; Platelet Count 184 K/uL (130-400); RDW Coefficient of Variation 13.3 % (11.5-14.5); RDW Standard Deviation 43.5 fL (36.4-46.3); Red Blood Count 3.96 M/uL (4.7-6.1); White Blood Count 11.48 K/uL (4.8-10.8)
[2021-12-02 06:49] LABS: BUN Creatinine Ratio 26.7 (10-20); Calcium 8.4 mg/dl (8.5-10.1); Creatinine Clr Calc Pharmacy 96.2 ml/min; Est GFR (African American) 105.7 ml/min; Est GFR (Non-African American) 91.2 ml/min; Potassium 4.2 mmol/L (3.5-5.1)
[2021-12-02] MEDS: CHECK SCOPOLAMINE PATCH PLACEMENT SCH ×2 (08:04→17:08)
[2021-12-02] MEDS: CHOLECALCIFEROL 1,000 UNITS 25 MCG TAB PO SCH (08:04)
[2021-12-02] MEDS: ASPIRIN 81 MG ECTAB PO SCH (08:04)
[2021-12-02] MEDS: VALSARTAN/SACUBITRIL 51/49 MG TAB PO SCH ×2 (08:04→21:40)
--- NOTE | 2021-12-02 08:37 | Orthopedic Progress Note ---
Date of Service December 02, 2021 Assessment & Plan (1) Neurogenic claudication due to lumbar spinal stenosis: Plan: At this time initiate physical therapy monitor his MIGUEL output hopefully discharge home in the next few days. Admission and Anticipated Discharge Date Admission Date: December 01, 2021 Subjective Patient's back pain is controlled leg symptoms improved Physical Exam Physical Exam: Patient is sitting up in bed. Eating breakfast. Is comforta ble. Is good strength testing. Results & Data ([facility]) Vital Signs (Past 12 Hours) Vital Signs Temp Pulse Pulse Resp BP Pulse Ox 12/02/21 07:35 36.6 C 67 16 91/55 L 97 12/02/21 03:42 36.6 C 70 16 103/75 98 12/02/21 00:14 36.6 C 75 16 101/52 L 97 12/02/21 00:05 99/57 L 12/01/21 23:15 36.6 C 98 H 16 102/55 L 97 12/01/21 22:18 95/53 L
[2021-12-02] MEDS: dexAMETHasone 6 MG in SYRINGE 0 ML IV SCH (09:04)
--- NOTE | 2021-12-02 14:33 | Hospitalist Progress Note ---
Date of Service December 02, 2021 Assessment & Plan (1) Neurogenic claudication due to lumbar spinal stenosis: Plan: Postop day #1 L4-S1 decompression and fusion by Dr. Low No postop complication Continue incentive spirometry Continue Pain management Fall precaution Continue monitor Hgb PT/OT eval (2) Non-ischemic cardiomyopathy: Plan: [place] to be tachycardia induced, most recent EF 45% Continue Entresto and metoprolol (3) PVCs (premature ventricular contractions): Plan: S/p ablation Continue metoprolol (4) BPH (benign prostatic hyperplasia): Plan: Continue tamsulosin (5) DVT prophylaxis: Plan: TEDs/SCDs as per spine Ortho Thank you for this consultation. We will follow the patient with you during their hospital stay. You can reach a member of the [facility] Hospitalist Team 04/01 via the [facility]ist role in [place] Text. Admission and Anticipated Discharge Date Admission Date: December 01, 2021 Subjective Pt was seen and examined for postop follow up Lying in bed with no acute distress Pt said that he feels ok He worked with therapy today He said that his pain control Denies any chest pain, palpitation, dizziness Review of Systems Review of Systems: All systems reviewed & are unremarkable except as noted in Subjective Physical Exam Physical Exam: General- No acute distress Head- atraumatic Eyes- PERRL, EOMI, ENT- oropharynx clear Neck- supple, no JVD Lungs- clear to auscultation Heart- regular rhythm; no murmur Abdomen- normal bowel sounds, soft, nontender Extremities- no calf tenderness Neuro- alert, oriented x 3; PERRL, EOMI; no facial palsy; no dysarthria Skin- warm & dry Results & Data Results & Data ([facility]) Vital Signs (Past 12 Hours) Vital Signs Temp Pulse Resp BP Pulse Ox 12/02/21 07:35 36.6 C 67 16 91/55 L 97 12/02/21 03:42 36.6 C 70 16 103/75 98
[2021-12-02] MEDS: DOCUSATE SODIUM/SENNA 50/8.6MG TAB PO SCH (21:39)
[2021-12-02] MEDS: MAGNESIUM OXIDE 400 MG TAB PO SCH (21:39)
[2021-12-02] MEDS: METOPROLOL SUCC 25MG EXT REL TAB PO SCH (21:40)
[2021-12-02] MEDS: TAMSULOSIN HCL 0.4 MG CAP PO SCH (21:40)
[2021-12-03] MEDS: POLYETHYLENE (MIRALAX) 17 GM PACK PO SCH ×3 (00:09→12:00)
[2021-12-03] MEDS: CHECK SCOPOLAMINE PATCH PLACEMENT SCH ×3 (00:09→15:46)
[2021-12-03] MEDS: traMADol HCL 50 MG TABLET PO PRN (05:45)
[2021-12-03] MEDS: VALSARTAN/SACUBITRIL 51/49 MG TAB PO SCH ×2 (07:34→22:01)
[2021-12-03] MEDS: dexAMETHasone 6 MG in SYRINGE 0 ML IV SCH (07:34)
[2021-12-03] MEDS: CHOLECALCIFEROL 1,000 UNITS 25 MCG TAB PO SCH (07:34)
[2021-12-03] MEDS: ASPIRIN 81 MG ECTAB PO SCH (07:34)
--- NOTE | 2021-12-03 14:28 | Orthopedic Progress Note ---
Date of Service December 03, 2021 Assessment & Plan (1) Neurogenic claudication due to lumbar spinal stenosis: Plan: Patient is doing well postop day #2. He is ambulatory with his walker and pain is well controlled. He had a bowel movement today. We will hold on discharge today as he lives far away and his drain has placed a significant amount out. He will continue to ambulate. We will see him tomorrow and see if he is ready for home discharge. Admission and Anticipated Discharge Date Admission Date: December 01, 2021 Subjective Patient seen bedside in room 306. He is doing well at this point his pain is well controlled. He had some burning sensations in his feet and occasional numbness as well. He has just been taking Tylenol for pain. He took 1 tramadol this morning. He denies any other numbness, tingling, or paresthesias. Physical Exam Physical Exam: On exam he is alert and oriented. He moves easily about the exam room with a wheeled walker. His strength and sensation are grossly intact his calves are supple nontender his abdomen supple nontender. His MIGUEL drain is in place and has put out 50 cc on the shift and 80 on the last. Results & Data ([facility]) Vital Signs (Past 12 Hours) Vital Signs Temp Pulse Resp BP Pulse Ox 12/03/21 07:01 36.5 C 62 18 114/69 97
--- NOTE | 2021-12-03 17:21 | Hospitalist Progress Note ---
Date of Service December 03, 2021 Assessment & Plan (1) Neurogenic claudication due to lumbar spinal stenosis: Plan: Postop day #2 L4-S1 decompression and fusion by Dr. Low No postop complication Continue incentive spirometry Continue Pain management Fall precaution Continue monitor Hgb PT/OT eval Discharge as per primary (2) Non-ischemic cardiomyopathy: Plan: [place] to be tachycardia induced, most recent EF 45% Continue Entresto and metoprolol No acute cardiac symptoms Will check electrolytes and CBC tomorrow (3) PVCs (premature ventricular contractions): Plan: S/p ablation Continue metoprolol (4) BPH (benign prostatic hyperplasia): Plan: Continue tamsulosin (5) DVT prophylaxis: Plan: TEDs/SCDs as per spine Ortho Medically stable to be discharged Admission and Anticipated Discharge Date Admission Date: December 01, 2021 Subjective 12/03/2021 The patient was seen and examined in medical floor He is status post lumbar back surgery Has had his bowel movement and has been moving around with minimal difficulties Still has the numbness and tingling in the lower extremities Review of Systems Review of Systems: All systems reviewed and are unremarkable except as noted below Physical Exam Physical Exam: Sitting on a chair without any acute distress Constitutional: well developed, well nourished and + ill appearing Eyes: PERRL, conjunctivae normal, anicteric sclerae ENMT: external ear and nose normal, oropharynx normal Neck: trachea midline, no thyromegaly Respiratory: no respiratory distress Auscultation: lungs clear to auscultation bilaterally Cardiovascular: Rate/Rhythm: regular rate and regular rhythm; not tachycardic Heart Sounds: normal S1 and normal S2; no murmur Extremities: no edema Gastrointestinal (Abdomen): Inspection/Auscultation: normal bowel sounds; abdomen not distended Percussion/Palpation: abdomen soft; abdomen nontender Musculoskeletal: Back pain with tenderness on palpation over lower lumbar area. Neurologic: Alert, awake and oriented x3 Results & Data Results & Data ([facility]) Vital Signs (Past 12 Hours) Vital Signs Temp Pulse Resp BP BP Pulse Ox 12/03/21 15:23 36.5 C 66 20 103/61 97 12/03/21 07:01 36.5 C 62 18 114/69 97 Medications Administered Current Inpatient Medications Acetaminophen (Acetaminophen 500 Mg Tab) 1,000 mg PO Q8H PRN PRN Reason: MILD Pain Scale 1,2,3 & Pre PT Stop: 12/31/21 17:00 Last Admin: 12/02/21 18:49 Dose: 1,000 mg Documented by: Hydrocodone Bitart/Acetaminophen (Hydrocodone/Acetamophen 5/325mg Tab) 1 - 2 tab PO Q4H PRN PRN Reason: Pain & Pre PT Stop: 12/15/21 17:00 Al Hydrox/Mg Hydrox/Simethicone (Aluminum/Magnesium Susp 30 Ml Udc) 30 ml PO Q6H PRN PRN Reason: Dyspepsia Stop: 12/31/21 17:00 Aspirin (Aspirin 81 Mg Ectab) 81 mg PO QAM HALIE Stop: 01/01/22 08:59 Last Admin: 12/03/21 07:34 Dose: 81 mg Documented by: Bisacodyl (Bisacodyl 10 Mg Supp) 10 mg MT DAILY PRN PRN Reason: Constipation Stop: 12/31/21 17:00 Diphenhydramine HCl (Diphenhydramine Capsule 25 Mg Cap) 25 mg PO Q6H PRN PRN Reason: Allergic Rhinitis/Insomnia Stop: 12/31/21 17:00 Famotidine (Famotidine 20 Mg Tab) 20 mg PO Q12H PRN PRN Reason: Dyspepsia Stop: 12/31/21 17:00 Hydromorphone HCl (Hydromorphone Inj 0.5 Mg/0.5 Ml Syr) 0.5 mg IV Q3H PRN PRN Reason: MODERATE Pain (Scale 4,5,6) & Pre PT Stop: 12/15/21 17:00 Hydromorphone HCl (Hydromorphone Inj 1 Mg/Ml Syringe) 1 mg IV Q3H PRN PRN Reason: SEVERE Pain (Scale 7,8,9,10) Stop: 12/15/21 17:00 Hydroxyzine HCl (Hydroxyzine Hcl 25 Mg Tab) 25 mg PO Q8H PRN PRN Reason: Anxiety Stop: 12/31/21 17:00 Promethazine HCl 12.5 mg/ (Sodium Chloride) 50.5 mls @ 202 mls/hr IV Q6H PRN PRN Reason: Nausea &/or Vomiting Stop: 12/31/21 17:00 Acetaminophen (Ofirmev) 1,000 mg in 100 mls @ 400 mls/hr IV Q8H PRN PRN Reason: Pain Rating 1-3 & Pre PT Stop: 12/04/21 17:00 Lorazepam 0.5 mg/ Syringe 0.5 mls @ 2 mls/min IV Q8H PRN PRN Reason: Sedation/Anxiety Stop: 12/31/21 17:00 Dexamethasone 6 mg/ Syringe 1.5 mls @ 1 mls/min IV DAILY HALIE Stop: 12/04/21 09:02 Last Admin: 12/03/21 07:34 Dose: 1 mls/min Documented by: Influenza Virus Vaccine Quadrival (Do Not Administer Flu Vaccine) 1 ea N/A PRN PRN PRN Reason: Notification Stop: 12/31/21 17:00 Lorazepam (Lorazepam 0.5 Mg Tab) 0.5 mg PO Q8H PRN PRN Reason: Sedation/Anxiety Stop: 12/31/21 17:00 Magnesium Hydroxide (Magnesium Hydroxide Susp 30 Ml Udc) 30 ml PO Q24H PRN PRN Reason: Constipation Stop: 12/31/21 17:00 Last Admin: 12/03/21 07:34 Dose: 30 ml Documented by: Magnesium Oxide (Magnesium Oxide 400 Mg Tab) 400 mg PO PM HALIE Stop: 12/31/21 20:59 Last Admin: 12/02/21 21:39 Dose: 400 mg Documented by: Metoclopramide HCl (Metoclopramide Hcl Inj 5 Mg/Ml 2 Ml Vial) 10 mg IV Q6H PRN PRN Reason: Nausea &/or Vomiting Stop: 12/31/21 17:00 Metoprolol Succinate (Metoprolol Succ 25mg Ext Rel Tab) 25 mg PO PM HALIE Stop: 12/31/21 20:59 Last Admin: 12/02/21 21:40 Dose: Not Given Documented by: Miscellaneous (Check Scopolamine Patch Placement) 1 ea N/A QS HALIE Stop: 12/04/21 05:59 Last Admin: 12/03/21 15:46 Dose: 1 ea Documented by: Miscellaneous (Remove Transderm-Scop Patch) 1 ea N/A ONE ONE Stop: 12/04/21 06:01 Naloxone HCl (Naloxone Hcl 0.4 Mg/1 Ml Vial/Carp) 0.1 mg IV Q5M PRN PRN Reason: Oversedation/Resp depression Stop: 12/31/21 17:00 Ondansetron HCl (Ondansetron Inj 2 Mg/Ml 2 Ml Vial) 4 mg IV Q6H PRN PRN Reason: Nausea &/or Vomiting Stop: 12/31/21 17:00 Ondansetron HCl (Ondansetron 4 Mg Od Tab) 4 mg PO Q6H PRN PRN Reason: Nausea Stop: 12/31/21 17:00 Pneumococcal Polyvalent Vaccine (Do Not Administer Pneumococcal Vaccine) 1 ea N/A PRN PRN PRN Reason: Notification Stop: 12/31/21 17:00 Sacubitril/Valsartan (Valsartan/Sacubitril 51/49 Mg Tab) 1 tab PO BID [facility] Stop: 12/31/21 20:59 Last Admin: 12/03/21 07:34 Dose: 1 tab Documented by: Senna/Docusate Sodium (Docusate Sodium/Senna 50/8.6mg Tab) 2 tab PO HS [facility] Stop: 12/31/21 20:59 Last Admin: 12/02/21 21:39 Dose: 2 tab Documented by: Sodium Biphosphate/Sodium Phosphate (Sod Phosphate/Sod Biphosphate Enema 132 Ml Btl) 132 ml MT ONE PRN PRN Reason: Constipation Stop: 12/31/21 17:00 Tamsulosin HCl (Tamsulosin Hcl 0.4 Mg Cap) 0.4 mg PO PM [facility] Stop: 12/31/21 20:59 Last Admin: 12/02/21 21:40 Dose: 0.4 mg Documented by: Tramadol HCl (Tramadol Hcl 50 Mg Tablet) 50 - 100 mg PO Q4H PRN PRN Reason: Moderate-Severe pain & Pre PT Stop: 12/31/21 17:00 Last Admin: 12/03/21 05:45 Dose: 50 mg Documented by: Vitamin D (Cholecalciferol 1,000 Units 25 Mcg Tab) 1,000 units PO QAM [facility] Stop: 01/01/22 08:59 Last Admin: 12/03/21 07:34 Dose: 1,000 units Documented by:
[2021-12-03] MEDS: DOCUSATE SODIUM/SENNA 50/8.6MG TAB PO SCH (22:01)
[2021-12-03] MEDS: MAGNESIUM OXIDE 400 MG TAB PO SCH (22:01)
[2021-12-03] MEDS: TAMSULOSIN HCL 0.4 MG CAP PO SCH (22:01)
[2021-12-03] MEDS: METOPROLOL SUCC 25MG EXT REL TAB PO SCH (22:07)
[2021-12-04] MEDS: traMADol HCL 50 MG TABLET PO PRN ×2 (00:46→10:37)
[2021-12-04] MEDS: CHECK SCOPOLAMINE PATCH PLACEMENT SCH (00:47)
[2021-12-04 06:11] LABS: Eosinophils # (auto) 0.02 K/uL (0-0.5); Eosinophils % (auto) 0.2 %; Hematocrit (blood only) 35.2 % (42-52); Hemoglobin 12.2 g/dL (14.0-18.0); Immature Granulocytes # (auto) 0.03 K/uL (0.00-0.02); Immature Granulocytes % (auto) 0.3 %; Lymphocytes # (auto) 1.67 K/uL (1.2-3.4); Lymphocytes % (auto) 13.9 %; Mean Corpuscular Hemoglobin 31.7 pg (25-34); Mean Corpuscular Hgb Conc 34.7 g/dL (32-36); Mean Corpuscular Volume 91.4 fL (80-100); Mean Platelet Volume 9.6 fL (7.4-10.4); Monocytes # (auto) 1.68 K/uL (0.11-0.59); Neutrophils # (auto) 8.58 K/uL (1.4-6.5); Neutrophils % (auto) 71.6 %; Platelet Count 207 K/uL (130-400); RDW Coefficient of Variation 13.5 % (11.5-14.5); RDW Standard Deviation 44.7 fL (36.4-46.3); Red Blood Count 3.85 M/uL (4.7-6.1); White Blood Count 11.98 K/uL (4.8-10.8)
[2021-12-04 07:35] LABS: BUN Creatinine Ratio 26.4 (10-20); Calcium 8.9 mg/dl (8.5-10.1); Creatinine Clr Calc Pharmacy 99.5 ml/min; Est GFR (African American) 107.2 ml/min; Est GFR (Non-African American) 92.5 ml/min; Potassium 4.4 mmol/L (3.5-5.1)
--- NOTE | 2021-12-04 08:09 | Discharge Summary ---
Date of Service December 04, 2021 Admission HPI Per Admitting Provider This is a 61-year-old female well-known to me the presents with car persistent back and leg pain. Failing course of nonoperative care is here for surgical intervention. Admission Exam (Per Admitting) Constitutional average body habitus Eyes normal visual scanlon by confrontation Neck normal visual inspection Respiratory normal respiratory effort Cardiovascular Extremities: normal capillary refill Gastrointestinal (Abdomen) Inspection/Auscultation: abdomen normal to inspection Musculoskeletal Extremities: extremities normal to inspection and strength 5/5 throughout Skin normal turgor Neurologic normal touch/pain/proprioception and moves all extremities Psychiatric A+Ox3, euthymic affect Apperance: appropriately dressed Eye Contact: good eye contact Discharge Data Consultations 12/01/21 17:01 Consult Hospitalist Routine Procedures Performed Operation Date: 12/01/21 11:55 Actual Procedures p L4-S1 Decompression Fusion, Spinal Cord Monitoring(Not Applicable) - Casey Low, DO Hospital Course (1) Neurogenic claudication due to lumbar spinal stenosis: Guy is being discharged home on postoperative day 3 status post L4-S1 decompression instrumented fusion. He is done well postoperatively. Lab values have been stable. He is ambulating several 100 feet in physical therapy. He has had a bowel movement. Pain is controlled. MIGUEL drain output is still rather high. He is going to be discharged home with this with plans to follow-up in our [place] office on December 08 for removal. Discharge Instructions ACTIVITY RECOMMENDATIONS: SELF CARE INSTRUCTIONS AFTER THORACIC/LUMBAR FUSIONS 1. You may walk to your tolerance. It is good exercise for your legs and back. Expect some back and intermittent leg aches and pains. 2. You may perform "counter-top" level activities (make a sandwich, betzy with a project, etc.). 3. No bending or lifting of more than 10 pounds or back twisting of any nature (roll like a log when turning in bed). 4. You may ride in a car for 20-30 minutes at a time. No driving until after your first visit with your doctor. 5. Frequent changes of position and restricting sitting to 30 minutes at a time will help limit the amount of back spasms and stiffness you may experience. 6. You may discontinue the use of ambulatory aids (cane, crutches, etc.) once your strength and confidence allow. 7. You may spring inspector the shower and let water strike your incision when you arrive home at least once daily. Do not take a tub bath, sit in a hot tub or go into a swimming pool until after your first recheck in the office. SPECIAL CARE INSTRUCTIONS: VERY IMPORTANT TO READ AND REVIEW A. Your surgical incision has been closed with a cosmetic suture under the skin that will dissolve in about 6 weeks. In 14 days, you can use a pair of clean scissors and cut the suture that is left outside of the skin at the ends of your incision. 1. The small skin tapes can be removed 7 days after surgery if they have not fallen off by that point. 2. You may keep the wound open to air as much as possible to promote healing after post-op day number 5 unless told otherwise by your doctor. 3. If you think the wound looks like it is becoming infected (redness or worsening drainage) and/or you are experiencing fever, chill or worsening back pain and muscle spasms, contact the office so that we may evaluate you as soon as possible. B. Complications are uncommon, but please contact us if you have any signs or symptoms of: 1. wound infection (fever higher than 102.5 degrees F, redness, separation of wound, drainage, or increasing pain from the incision) 2. blood clots in legs (pain, swelling, redness and warmth in legs) 3. urinary tract infection (fever higher than 102.5 degrees F, burning upon urination or increased frequency of urination) 4. nerve problems (inability to walk on your toes or heels, numbness, loss of bowel or bladder control) 5. any other symptoms that concern you C. Please call the office at if you have any concerns or questions about your operation or recovery. D. No smoking! Smoking drastically decreases the chance of a solid fusion. E. Do not take any anti-inflammatory medications (Indocin, Advil, Motrin, Aspirin, Naprosyn, etc.) as these may inhibit the chance of a solid fusion. Tylenol is okay to take for pain. MANAGING PAIN AFTER SPINAL SURGERY 1. Narcotic medication is intended for short-term use and will be provided for surgical pain. Surgical pain usually lasts for a period of 4-6 weeks. Narcotic medication includes Percocet, Vicodin, Darvocet, Tylenol #3 or Lortab. 2. Longer-term pain is more appropriately treated with non-narcotic medication such as Tylenol ES. 3. Muscle spasm is not appropriately treated with narcotics. Muscle relaxers such as Soma, Flexeril or Skelaxin can be used along with Tylenol ES. 4. Remember that we all live with some "aches and pains". This is not unusual or uncommon after an injury or as we get older. a. Back pain is expected and may include muscle spasms for 4 to 6 weeks after surgery. The pain should gradually improve. If the pain worsens for no apparent reason, please contact the office. b. Intermittent leg pain may also be experienced and should not be concerned about unless it worsens for no apparent reason. If so, please contact the office. 5. We will provide appropriate medication within the normal guidelines of their prescribed use. We will also be very cautious and aware of potential abuse and extended duration of patients' medication needs. a. Pain medications are for your comfort and to assist with sleep and rest so that the tissue can heal. They are not provided in order to return to normal activity and should not be used through the day. To do so or worsening pain at night can result from ongoing tissue damage and development of tolerance to the prescribed medicine. 6. Please allow 2-3 days to process refills. Prescriptions will not be mailed but must be picked up at the office. FOLLOW UP VISIT: Keep your scheduled follow-up appointment. Any questions, please call the office at .
[2021-12-04] MEDS: ASPIRIN 81 MG ECTAB PO SCH (08:18)
[2021-12-04] MEDS: CHOLECALCIFEROL 1,000 UNITS 25 MCG TAB PO SCH (08:18)
[2021-12-04] MEDS: VALSARTAN/SACUBITRIL 51/49 MG TAB PO SCH (08:18)
[2021-12-04] MEDS: dexAMETHasone 6 MG in SYRINGE 0 ML IV SCH ×2 (08:18→08:33)
== END 2021-12-04 10:50 | disposition home or self-care (01) | DRG 454 ==
LOC: ASU 10:04 → 3E 14:54
DX: N40.0 Benign prostatic hyperplasia without lower urinary tract symptoms; Z88.1 Allergy status to other antibiotic agents; Z88.5 Allergy status to narcotic agent; I42.8 Other cardiomyopathies; Z86.16 Personal history of COVID-19; Z98.1 Arthrodesis status; Z79.82 Long term (current) use of aspirin; M48.062 Spinal stenosis, lumbar region with neurogenic claudication; K21.9 Gastro-esophageal reflux disease without esophagitis; I49.8 Other specified cardiac arrhythmias; Z87.442 Personal history of urinary calculi

== ENCOUNTER 2021-12-05 03:34 | Observation (INO) ==
[2021-12-05] MEDS ORDERED: ONDANSETRON INJ 2 MG/ML 2 ML VIAL IV STA (03:55)
[2021-12-05] MEDS ORDERED: SODIUM CHLORIDE 0.9% 1000ML 1,000 ML IV SCH (04:00)
--- NOTE | 2021-12-05 04:12 | Emergency Department Note ---
History of Present Illness General Chief complaint: Headache Stated complaint: Spinal surgery, headache and stomach pain followed Time Seen by Provider: 12/05/21 03:44 History of Present Illness Maximum Pain Intensity: 9 61-year-old male presents emergency department status post lumbar spinal fusion from Dr. Low approximately 4 days ago. Patient was discharged at 11 AM yesterday morning. Patient did receive an Ultram prior to discharge. Patient states that he has had an intermittent frontal headache 3 times now that is precipitated by standing or walking. Patient states that he vomited a few times due to this headache. Patient tried to take a Tylenol, patient also use an ice pack and pressure to the head with no resolution. Patient denies fever denies blurred vision denies slurred speech. Denies neck pain. Patient states he was doing well prior to discharge. Patient's states around 5 PM he had significant amount of drainage soaking the surgical bandage. Home Medications Medication Instructions Recorded Confirmed Type aspirin 81 mg tablet,delayed 81 mg PO QAM 11/07/21 12/01/21 History release cholecalciferol (vitamin D3) 25 25 mcg PO QAM 11/07/21 12/01/21 History mcg (1,000 unit) tablet (Vitamin D3) magnesium 250 mg tablet 250 mg PO PM 11/07/21 12/01/21 History metoprolol succinate 25 mg 25 mg PO PM 11/07/21 12/01/21 History tablet,extended release 24 hr sacubitril 49 mg-valsartan 51 mg 1 tab PO BID 11/07/21 12/01/21 History tablet (Entresto) tamsulosin 0.4 mg capsule 0.4 mg PO PM 11/07/21 12/01/21 History hydrocodone 5 mg-acetaminophen 325 1 tab PO Q6H PRN #30 tab 12/02/21 Rx mg tablet tramadol 50 mg tablet 50 mg PO Q6H PRN #30 tab 12/02/21 Rx Allergies Allergy/AdvReac Type Severity Reaction Status Date / Time cephalexin AdvReac Unknown Nausea, GI Verified 12/01/21 10:27 upset oxycodone AdvReac Unknown Severe N/V Verified 12/01/21 10:27 Past Med/Surg History Medical History Acid reflux Mild > no meds Stable and controlled BPH (benign prostatic hyperplasia) Cervical stenosis of spinal canal Numbness in arms at times History of COVID-19 05/2020 Possible ischemic CM may have resulted from Covid Kidney stones No recent issues 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 Serna with [facility] PVCs (premature ventricular contractions) S/p ablation 11/2020 per cardio records - significant reduction in PVC burden Surgical History H/O cardiac radiofrequency ablation November 2020 > formerly [facility] History of arthroscopy knee x2 History of cardiac cath August 2020 > no stents > [facility] History of colonoscopy Hx of fusion of cervical spine approx 7 yrs ago > ROM not limited per pt's report Hx of hand surgery left > tendon repair from work accident Family History Father Colon cancer Social History Smoking Status: Never smoker Second Hand Exposure: No; Hx Alcohol Use: No Hx Substance Use: No Preferred Language: Maori Communication Ability: Effective Chief Innovation Officer Required: No Beliefs That Will Affect Care: None marital status: Current Living Situation: Spouse Feels Safe at Home: Yes Assistive Devices: Cane and Walker Review of Systems A total of 10 systems reviewed and were otherwise negative Constitutional: no fever Respiratory: no cough Cardiovascular: no chest pain Neurologic: + headache(s) Physical Exam Vital Signs Vital Signs - 24 hr 12/05/21 03:38 12/05/21 04:59 12/05/21 05:00 Temperature 36.2 C L Temperature Source Temporal Artery Scan Pulse Rate 72 Pulse Rate [Apical] Pulse Rhythm Regular Pulse Rhythm [Apical] Pulse Strength Normal Pulse Strength [Apical] Respiratory Rate 16 18 16 Respiratory Effort / Characteristics Non-Labored Non-Labored Spontaneous Non-Labored Spontaneous Respiratory Depth Normal Respiratory Pattern Regular Blood Pressure 123/75 Blood Pressure [Right Arm] Blood Pressure Mean 91 Blood Pressure Mean [Right Arm] Blood Pressure Position Sitting Blood Pressure Position [Right Arm] Pulse Oximetry 99 97 97 Oxygen Delivery Method Room Air Room Air Room Air Sepsis Recent Fever Within 48 Hours No Sepsis New/Unexplained Change in Mental Status N/A Sepsis Action Taken by Nursing No Action Required 12/05/21 05:06 12/05/21 05:07 12/05/21 05:30 Temperature 36.7 C Temperature Source Oral Pulse Rate 62 Pulse Rate [Apical] 65 66 Pulse Rhythm Regular Pulse Rhythm [Apical] Regular Regular Pulse Strength Pulse Strength [Apical] Normal Normal Respiratory Rate 18 18 18 Respiratory Effort / Characteristics Non-Labored Spontaneous Non-Labored Spontaneous Respiratory Depth Normal Normal Respiratory Pattern Regular Regular Blood Pressure Blood Pressure [Right Arm] 129/83 142/81 H Blood Pressure Mean Blood Pressure Mean [Right Arm] 98 101 Blood Pressure Position Blood Pressure Position [Right Arm] Semi-fowlers Semi-fowlers Pulse Oximetry 96 95 96 Oxygen Delivery Method Room Air Room Air Room Air Sepsis Recent Fever Within 48 Hours Sepsis New/Unexplained Change in Mental Status Sepsis Action Taken by Nursing 12/05/21 06:02 Temperature Temperature Source Pulse Rate Pulse Rate [Apical] 68 Pulse Rhythm Pulse Rhythm [Apical] Regular Pulse Strength Pulse Strength [Apical] Normal Respiratory Rate 16 Respiratory Effort / Characteristics Non-Labored Spontaneous Respiratory Depth Normal Respiratory Pattern Regular Blood Pressure Blood Pressure [Right Arm] 130/75 Blood Pressure Mean Blood Pressure Mean [Right Arm] 93 Blood Pressure Position Blood Pressure Position [Right Arm] Semi-fowlers Pulse Oximetry 95 Oxygen Delivery Method Room Air Sepsis Recent Fever Within 48 Hours Sepsis New/Unexplained Change in Mental Status Sepsis Action Taken by Nursing VITAL SIGNS - Vital signs and nursing notes were reviewed. GENERAL - No acute distress. Communicates well with provider and answers questions appropriately. SKIN - Without rashes. HEAD - NC/AT. EYES - PERRL with EOMI bilaterally. Sclera anicteric. Palpebral conjunctiva pink and moist with no injection noted. EARS - No deformities of external structures noted on gross examination bilaterally. NOSE - Midline and without cyanosis. No epistaxis or purulent drainage noted. Septum midline without deviation or septal hematoma noted. MOUTH/OROPHARYNX - Without perioral cyanosis. Buccal mucosa pink and moist and without leukoplakia. Tongue midline with equal elevation of palate bilaterally. No tonsillar hypertrophy, erythema, or exudates noted. NECK - Neck with FROM. Supple to palpation. No nuchal rigidity. No meningismus LUNGS - Chest wall symmetric without accessory muscle use, intercostals retractions, or central cyanosis. Normal vesicular breath sounds CTA B/L. No wheezes, rales, or rhonchi appreciated. CARDIAC - RRR with S1/S2. No murmur, rubs, or gallops appreciated. ABDOMEN - Abdominal contour soft without pulsations or visible masses. BS normoactive all four quadrants. No tenderness, palpable masses, hepatosplenomegaly, or ascites noted. EXTREMITIES - No clubbing or peripheral cyanosis. +5/5 strength noted in UE/LE bilaterally. BACK: There is a large bandage in the midline of the lumbar region that appears to be soaked with serosanguineous and bloody fluid. There is a Eloy-Durand drain present with bloody fluid present after removal of bandages there is no midline tenderness there is an area that is inferior and midline that is not draining and cannot express any discharge from the wound;there is no dehiscence. NEUROLOGIC - Cranial nerves II through XII grossly intact. PSYCH - A&Ox3 and cooperates fully with examiner. Pt is very pleasant and interacts well with examiner. Course Reevaluation(s) Reevaluation #1: Patient continues to complain of a frontal headache he states that the pain has decreased after IV fluids Zofran and fentanyl. But he states that the headache is persistent. Time: 05:52 Reevaluation #2: Spoke with Dr Henderson for admit Consultations Consultation #1: Spoke with Dr. Low's physician psychological assistant Dale Romero -discussed the evaluation of this patient with a headache that is frontal in nature described the sx wound and the Eloy-Durand drain and the soaked bandages. At this point he does not think that the patient has a spinal leak. Time: 05:53 Administered Medications Discontinued Medications Fentanyl Citrate (Fentanyl Citrate 100 Mcg/2 Ml Vial) 50 mcg IV NOW STA Stop: 12/05/21 04:23 Last Admin: 12/05/21 04:32 Dose: 50 mcg Documented by: [id number] Sodium Chloride (Nss 1000ml) 1,000 mls @ 999 mls/hr IV .[id number] HALIE Stop: 12/05/21 05:00 Last Infusion: 12/05/21 05:54 Dose: 0 mls/hr Documented by: [id number] Admin: 12/05/21 04:28 Dose: 999 mls/hr Documented by: [id number] Ketorolac Tromethamine (Ketorolac Tromethamine 15 Mg/Ml Vial) 15 mg IV NOW STA Stop: 12/05/21 05:56 Last Admin: 12/05/21 06:03 Dose: 15 mg Documented by: [id number] Ondansetron HCl (Ondansetron Inj 2 Mg/Ml 2 Ml Vial) 4 mg IV NOW STA Stop: 12/05/21 03:56 Last Admin: 12/05/21 04:09 Dose: 4 mg Documented by: [id number] Medical Decision Making Medical Records Attestation: I reviewed the patient's medical records. Home Medications Current Medication List: was personally reviewed by me Laboratory Data Attestation: I reviewed the patient's lab results. Result diagrams: 12/05/21 04:11 12/05/21 04:11 Lab Results 12/05/21 12/05/21 12/05/21 Range/Units 04:11 04:11 04:11 WBC 10.06 (4.8-10.8) K/uL RBC 4.36 L (4.7-6.1) M/uL Hgb 13.4 L (14.0-18.0) g/dL Hct 38.7 L (42-52) % MCV 88.8 (80-100) fL MCH 30.7 (25-34) pg MCHC 34.6 (32-36) g/dL RDW Std Deviation 43.2 (36.4-46.3) fL RDW Coeff of Tete 13.2 (11.5-14.5) % Plt Count 223 (130-400) K/uL MPV 9.5 (7.4-10.4) fL Immature Gran % (Auto) 0.3 % Neut % (Auto) 75.1 % Lymph % (Auto) 12.3 % Independence % (Auto) 11.7 % Eos % (Auto) 0.5 % Baso % (Auto) 0.1 % Neut # (Auto) 7.55 H (1.4-6.5) K/uL Lymph # (Auto) 1.24 (1.2-3.4) K/uL Independence # (Auto) 1.18 H (0.11-0.59) K/uL Eos # (Auto) 0.05 (0-0.5) K/uL Baso # (Auto) 0.01 (0-0.2) K/uL Immature Gran # (Auto) 0.03 H (0.00-0.02) K/uL PT 10.0 (9.0-12.0) Seconds INR 0.9 (0.9-1.1) APTT 24.2 (21.0-31.0) Seconds PTT Ratio 0.9 Sodium 137 (136-145) mmol/L Potassium 4.2 (3.5-5.1) mmol/L Chloride 103 (98-107) mmol/L Carbon Dioxide 24 (21-32) mmol/L Anion Gap 10 (3-11) BUN 28 H (6-23) mg/dl Creatinine 0.93 (0.6-1.4) mg/dl Est Cr Clr Drug Dosing Not Reportable Est GFR ( Amer) 101.6 ml/min Est GFR (Non-Af Amer) 87.7 ml/min BUN/Creatinine Ratio 30.1 H (10-20) Glucose 110 H (70-99(Fasting)) mg/dl Lactate (0.4-2.0) mmol/L Calcium 9.4 (8.5-10.1) mg/dl Magnesium 2.0 (1.7-2.4) mg/dl Total Bilirubin 0.8 (0.2-1.0) mg/dl AST 16 (13-39) U/L ALT 16 (7-52) U/L Alkaline Phosphatase 77 (34-104) U/L Total Protein 7.3 (6.0-8.3) gm/dl Albumin 4.0 (3.4-5.0) gm/dl Globulin 3.3 (2.5-4.0) gm/dl Albumin/Globulin Ratio 1.2 (0.9-2) SARS-CoV-2, RNA, NAAT (NEGATIVE) 12/05/21 12/05/21 Range/Units 05:28 05:56 WBC (4.8-10.8) K/uL RBC (4.7-6.1) M/uL Hgb (14.0-18.0) g/dL Hct (42-52) % MCV (80-100) fL MCH (25-34) pg MCHC (32-36) g/dL RDW Std Deviation (36.4-46.3) fL RDW Coeff of Tete (11.5-14.5) % Plt Count (130-400) K/uL MPV (7.4-10.4) fL Immature Gran % (Auto) % Neut % (Auto) % Lymph % (Auto) % Independence % (Auto) % Eos % (Auto) % Baso % (Auto) % Neut # (Auto) (1.4-6.5) K/uL Lymph # (Auto) (1.2-3.4) K/uL Independence # (Auto) (0.11-0.59) K/uL Eos # (Auto) (0-0.5) K/uL Baso # (Auto) (0-0.2) K/uL Immature Gran # (Auto) (0.00-0.02) K/uL PT (9.0-12.0) Seconds INR (0.9-1.1) APTT (21.0-31.0) Seconds PTT Ratio Sodium (136-145) mmol/L Potassium (3.5-5.1) mmol/L Chloride (98-107) mmol/L Carbon Dioxide (21-32) mmol/L Anion Gap (3-11) BUN (6-23) mg/dl Creatinine (0.6-1.4) mg/dl Est Cr Clr Drug Dosing Est GFR ( Amer) ml/min Est GFR (Non-Af Amer) ml/min BUN/Creatinine Ratio (10-20) Glucose (70-99(Fasting)) mg/dl Lactate 0.5 (0.4-2.0) mmol/L Calcium (8.5-10.1) mg/dl Magnesium (1.7-2.4) mg/dl Total Bilirubin (0.2-1.0) mg/dl AST (13-39) U/L ALT (7-52) U/L Alkaline Phosphatase (34-104) U/L Total Protein (6.0-8.3) gm/dl Albumin (3.4-5.0) gm/dl Globulin (2.5-4.0) gm/dl Albumin/Globulin Ratio (0.9-2) SARS-CoV-2, RNA, NAAT NEGATIVE (NEGATIVE) Imaging Data Attestation: I personally reviewed and interpreted this imaging study as follows: My Impression: Chest x-ray interpreted by me negative for infiltrate MDM Narrative Medical decision making differential diagnosis tension headache, dehydration, spinal headache syndrome, dehydration; postoperative pain we will check labs, CT, give medicines for headache Suspect meningitis I do not suspect an epidural abscess at this time Impression & Plan Headache Discharge Plan Visit Data Chief Complaint: Headache Stated Complaint: Spinal surgery, headache and stomach pain followed ED Provider: Bacilio Madison Discharge Problem: Headache Patient Disposition: Being Evaluated by Hospitalist Forms Stand Alone Forms: My [facility] Prescriptions Prescriptions: No Action aspirin 81 mg Tablet,Delayed Release (Dr/Ec) 81 mg PO QAM RF: 0 tamsulosin 0.4 mg Capsule 0.4 mg PO PM RF: 0 magnesium 250 mg Tablet 250 mg PO PM RF: 0 metoprolol succinate 25 mg Tablet Extended Release 24 Hr 25 mg PO PM RF: 0 cholecalciferol (vitamin D3) [Vitamin D3] 25 mcg (1,000 unit) Tablet 25 mcg PO QAM RF: 0 Entresto 49-51 mg Tablet 1 tab PO BID RF: 0 hydrocodone-acetaminophen 5-325 mg tablet 1 tab PO Q6H PRN (Reason: pain) Qty: 30 RF: 0 tramadol 50 mg tablet 50 mg PO Q6H PRN (Reason: pain, moderate) Qty: 30 RF: 0 Referrals Referrals: Girma Vences MD [Primary Care Provider] - Discharge Problem: Headache Qualifiers: Headache type: unspecified Headache chronicity pattern: acute headache Intractability: intractable Qualified Code(s): R51.9 - Headache, unspecified
[2021-12-05] MEDS ORDERED: fentaNYL citrate 100 MCG/2 ML VIAL IV STA (04:22)
[2021-12-05 04:29] LABS: Basophils # (auto) 0.01 K/uL (0-0.2); Basophils % (auto) 0.1 %; Eosinophils # (auto) 0.05 K/uL (0-0.5); Eosinophils % (auto) 0.5 %; Hematocrit (blood only) 38.7 % (42-52); Hemoglobin 13.4 g/dL (14.0-18.0); Immature Granulocytes # (auto) 0.03 K/uL (0.00-0.02); Immature Granulocytes % (auto) 0.3 %; Lymphocytes # (auto) 1.24 K/uL (1.2-3.4); Lymphocytes % (auto) 12.3 %; Mean Corpuscular Hemoglobin 30.7 pg (25-34); Mean Corpuscular Hgb Conc 34.6 g/dL (32-36); Mean Corpuscular Volume 88.8 fL (80-100); Mean Platelet Volume 9.5 fL (7.4-10.4); Monocytes # (auto) 1.18 K/uL (0.11-0.59); Monocytes % (auto) 11.7 %; Neutrophils # (auto) 7.55 K/uL (1.4-6.5); Neutrophils % (auto) 75.1 %; Platelet Count 223 K/uL (130-400); RDW Coefficient of Variation 13.2 % (11.5-14.5); RDW Standard Deviation 43.2 fL (36.4-46.3); Red Blood Count 4.36 M/uL (4.7-6.1); White Blood Count 10.06 K/uL (4.8-10.8)
[2021-12-05 05:01] LABS: Alanine Aminotransferase 16 U/L (7-52); Albumin Globulin Ratio 1.2 (0.9-2); Alkaline Phosphatase 77 U/L (34-104); Anion Gap 10 (3-11); Aspartate Aminotransferase 16 U/L (13-39); BUN Creatinine Ratio 30.1 (10-20); Bilirubin,Total 0.8 mg/dl (0.2-1.0); Blood Urea Nitrogen 28 mg/dl (6-23); Calcium 9.4 mg/dl (8.5-10.1); Carbon Dioxide 24 mmol/L (21-32); Chloride 103 mmol/L (98-107); Est GFR (African American) 101.6 ml/min; Est GFR (Non-African American) 87.7 ml/min; Globulin 3.3 gm/dl (2.5-4.0); Glucose 110 mg/dl (70-99(Fasting)); Potassium 4.2 mmol/L (3.5-5.1); Sodium 137 mmol/L (136-145); Total Protein 7.3 gm/dl (6.0-8.3)
[2021-12-05 05:06] LABS: INR 0.9 (0.9-1.1); Partial Thromboplastin Ratio 0.9; Partial Thromboplastin Time 24.2 Seconds (21.0-31.0)
[2021-12-05] MEDS ORDERED: KETOROLAC TROMETHAMINE 15 MG/ML VIAL IV STA (05:55)
--- NOTE | 2021-12-05 06:49 | History & Physical Report ---
Date of Service December 05, 2021 Assessment & Plan (1) Headache: Plan: Possible spinal/postdural headache Recent back surgery chronic systolic heart failure secondary to nonischemic cardiomyopathy, patient on the dry side hypertension, stable history of PVCs status post ablation BPH on Flomax chronic anemia, hemoglobin at baseline OBS [facility] Orthopedic spine consult for postop evaluation/postop headache (ER provider already in touch with provider distribution spec.) DVT prophylaxis. SCDs Re: Recent spine surgery Full code Patient requesting updates from providers. Ms. Magdalene Castro, contact numbers [phone]. Text document was generated using Eyel[employer] voice recognition software. It may contain grammatical or spelling errors. Kindly contact undersigned for clarification of any documentation item in question. History of Present Illness Chief Complaint: Headache Primary Care Provider: Girma Vences MD History obtained from patient, family, and records. Medical history significant for chronic systolic heart failure secondary to nonischemic cardiomyopathy (EF 45%, TTE 2021), hypertension, history of PVCs status post ablation, BPH, chronic anemia (baseline hemoglobin of 13). Recent confinement December 01- 2021 under Orthopedics spine service for L SS status post decompression surgery. Unremarkable postop course in the hospital. Patient noted achy frontal headache symptoms worse on moving around upon arrival at home. Some chills. No actual fever. No chest pain, no SOB. Subsequent nausea, emesis symptoms. Highest SBP at home 150s as per . No prior episodes as per patient. Patient brought to the ER for evaluation by because of intractable symptoms. Medical History as above Surgical History : Lumbar decompression, cervical spine surgery, hydrocele surgery, knee surgery, umbilical hernia repair Family History : Colon cancer, breast cancer Personal/Social history : Non-smoker, occasional EtOH intake, gasoline truck crane operator Allergies Allergy/AdvReac Type Severity Reaction Status Date / Time cephalexin AdvReac Unknown Nausea, GI Verified 12/01/21 10:27 upset oxycodone AdvReac Unknown Severe N/V Verified 12/01/21 10:27 Home Medications Medication Instructions Recorded Confirmed Type aspirin 81 mg tablet,delayed 81 mg PO QAM 11/07/21 12/01/21 History release cholecalciferol (vitamin D3) 25 25 mcg PO QAM 11/07/21 12/01/21 History mcg (1,000 unit) tablet (Vitamin D3) magnesium 250 mg tablet 250 mg PO PM 11/07/21 12/01/21 History metoprolol succinate 25 mg 25 mg PO PM 11/07/21 12/01/21 History tablet,extended release 24 hr sacubitril 49 mg-valsartan 51 mg 1 tab PO BID 11/07/21 12/01/21 History tablet (Entresto) tamsulosin 0.4 mg capsule 0.4 mg PO PM 11/07/21 12/01/21 History hydrocodone 5 mg-acetaminophen 325 1 tab PO Q6H PRN #30 tab 12/02/21 Rx mg tablet tramadol 50 mg tablet 50 mg PO Q6H PRN #30 tab 12/02/21 Rx Past Med/Surg History Medical History Acid reflux Mild > no meds Stable and controlled BPH (benign prostatic hyperplasia) Cervical stenosis of spinal canal Numbness in arms at times History of COVID-19 05/2020 Possible ischemic CM may have resulted from Covid Kidney stones No recent issues 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 Serna with [facility] PVCs (premature ventricular contractions) S/p ablation 11/2020 per cardio records - significant reduction in PVC burden Surgical History H/O cardiac radiofrequency ablation November 2020 > Counts include 234 beds at the [facility] History of arthroscopy knee x2 History of cardiac cath August 2020 > no stents > [facility] History of colonoscopy Hx of fusion of cervical spine approx 7 yrs ago > ROM not limited per pt's report Hx of hand surgery left > tendon repair from work accident Family History Father Colon cancer Social History Smoking Status: Never smoker Second Hand Exposure: No; Hx Alcohol Use: No Hx Substance Use: No Preferred Language: Upper Sorbian Communication Ability: Effective Insurance Application Investigator Required: No Beliefs That Will Affect Care: None marital status: Current Living Situation: Spouse Other Information That Helps Us Care for You: No Feels Safe at Home: Yes Safety Concerns: Feels Safe At This Time Assistive Devices: Glasses and Walker Assistive Devices Comment: dental bridge Review of Systems Review of Systems: As per HPI, all other systems reviewed and negative Physical Exam Physical Exam: , GENERAL: Comfortable, pleasant, obese, no respiratory distress SKIN: Pallor, warm HEENT: [place] palpebral conjunctivae, no ptosis, dry buccal mucosa NECK : Supple, no tenderness CHEST : CTA, no tenderness HEART : RRR, no obvious murmurs ABDOMEN: Some distention, nontender EXTREMITIES : No LE swelling/tenderness, no other conspicuous deformities noted NEUROLOGIC : Coherent, no facial asymmetry, no other gross focality Results & Data Results & Data ([facility]) Vital Signs (Past 12 Hours) Vital Signs Temp Pulse Pulse Resp BP BP Pulse Ox 12/05/21 06:02 68 16 130/75 95 12/05/21 05:30 66 18 142/81 H 96 12/05/21 05:07 62 18 95 12/05/21 05:06 36.7 C 65 18 129/83 96 12/05/21 05:00 16 97 12/05/21 04:59 18 97 12/05/21 03:38 36.2 C L 72 16 123/75 99 Laboratory Results Laboratory Results WBC 10.06 K/uL (4.8-10.8) 12/05/21 04:11 RBC 4.36 M/uL (4.7-6.1) L 12/05/21 04:11 Hgb 13.4 g/dL (14.0-18.0) L 12/05/21 04:11 Hct 38.7 % (42-52) L 12/05/21 04:11 MCV 88.8 fL (80-100) 12/05/21 04:11 MCH 30.7 pg (25-34) 12/05/21 04:11 MCHC 34.6 g/dL (32-36) 12/05/21 04:11 RDW Std Deviation 43.2 fL (36.4-46.3) 12/05/21 04:11 RDW Coeff of Tete 13.2 % (11.5-14.5) 12/05/21 04:11 Plt Count 223 K/uL (130-400) 12/05/21 04:11 MPV 9.5 fL (7.4-10.4) 12/05/21 04:11 Immature Gran % (Auto) 0.3 % 12/05/21 04:11 Neut % (Auto) 75.1 % 12/05/21 04:11 Lymph % (Auto) 12.3 % 12/05/21 04:11 [place] % (Auto) 11.7 % 12/05/21 04:11 Eos % (Auto) 0.5 % 12/05/21 04:11 Baso % (Auto) 0.1 % 12/05/21 04:11 Neut # (Auto) 7.55 K/uL (1.4-6.5) H 12/05/21 04:11 Lymph # (Auto) 1.24 K/uL (1.2-3.4) 12/05/21 04:11 [place] # (Auto) 1.18 K/uL (0.11-0.59) H 12/05/21 04:11 Eos # (Auto) 0.05 K/uL (0-0.5) 12/05/21 04:11 Baso # (Auto) 0.01 K/uL (0-0.2) 12/05/21 04:11 Immature Gran # (Auto) 0.03 K/uL (0.00-0.02) H 12/05/21 04:11 PT 10.0 Seconds (9.0-12.0) 12/05/21 04:11 INR 0.9 (0.9-1.1) 12/05/21 04:11 APTT 24.2 Seconds (21.0-31.0) 12/05/21 04:11 PTT Ratio 0.9 12/05/21 04:11 Sodium 137 mmol/L (136-145) 12/05/21 04:11 Potassium 4.2 mmol/L (3.5-5.1) 12/05/21 04:11 Chloride 103 mmol/L (98-107) 12/05/21 04:11 Carbon Dioxide 24 mmol/L (21-32) 12/05/21 04:11 Anion Gap 10 (3-11) 12/05/21 04:11 BUN 28 mg/dl (6-23) H 12/05/21 04:11 Creatinine 0.93 mg/dl (0.6-1.4) 12/05/21 04:11 Est Cr Clr Drug Dosing Not Reportable 12/05/21 04:11 Est GFR ( Amer) 101.6 ml/min 12/05/21 04:11 Est GFR (Non-Af Amer) 87.7 ml/min 12/05/21 04:11 BUN/Creatinine Ratio 30.1 (10-20) H 12/05/21 04:11 Glucose 110 mg/dl (70-99(Fasting)) H 12/05/21 04:11 Lactate 0.5 mmol/L (0.4-2.0) 12/05/21 05:28 Calcium 9.4 mg/dl (8.5-10.1) 12/05/21 04:11 Magnesium 2.0 mg/dl (1.7-2.4) 12/05/21 04:11 Total Bilirubin 0.8 mg/dl (0.2-1.0) 12/05/21 04:11 AST 16 U/L (13-39) 12/05/21 04:11 ALT 16 U/L (7-52) 12/05/21 04:11 Alkaline Phosphatase 77 U/L (34-104) 12/05/21 04:11 Total Protein 7.3 gm/dl (6.0-8.3) 12/05/21 04:11 Albumin 4.0 gm/dl (3.4-5.0) 12/05/21 04:11 Globulin 3.3 gm/dl (2.5-4.0) 12/05/21 04:11 Albumin/Globulin Ratio 1.2 (0.9-2) 12/05/21 04:11 SARS-CoV-2, RNA, NAAT NEGATIVE (NEGATIVE) 12/05/21 05:[address] head/brain wo con CLINICAL HISTORY: 61 years-old Male with headache. Acute headache with nausea and vomiting TECHNIQUE: Multiple axial CT images of the head were obtained without contrast. A dose lowering technique was utilized adhering to the principles of ALARA. CT DOSE: 614.27 mGy.cm COMPARISON: None. FINDINGS: No acute intracranial hemorrhage, midline shift, intracranial mass, hydrocephalus, territorial ischemia or abnormal extra-axial collection. Mildly motion degraded exam. The calvarium is intact. The paranasal sinuses, mastoid air cells, and middle ear cavities are clear. IMPRESSION: No acute intracranial abnormality. ACT 112: Negative or not required by law. CXR No acute cardiopulmonary disease. EKG as per my interpretation: Rate 65, NSR, normal axis, no ischemia (1) Headache Headache chronicity pattern: acute headache Headache type: unspecified Intractability: intractable Qualified Code(s): R51.9 - Headache, unspecified
[2021-12-05] MEDS ORDERED: SODIUM CHLORIDE 0.9% 1000ML 1,000 ML IV ONE (06:54)
--- NOTE | 2021-12-05 07:05 | CT Scan Report ---
CT head/brain wo con CLINICAL HISTORY: 61 years-old Male with headache. Acute headache with nausea and vomiting TECHNIQUE: Multiple axial CT images of the head were obtained without contrast. A dose lowering tech nique was utilized adhering to the principles of ALARA. CT DOSE: 614.27 mGy.cm COMPARISON: None. FINDINGS: No acute intracranial hemorrhage, midline shift, intracranial mass, hydrocephalus, territorial ischem ia or abnormal extra-axial collection. Mildly motion degraded exam. The calvarium is intact. The paranasal sinuses, mastoid air cells, and middle ear cavities are clear . IMPRESSION: No acute intracranial abnormality. ACT 112: Negative or not required by law. The above report was generated using voice recognition software. It may contain grammatical, syntax o r spelling errors. Electronically signed by: Willam Fischer M.D. 12/05/2021 7:03 AM
[2021-12-05] MEDS ORDERED: MoRPHine SULFATE 4 MG/ML 1 ML CARP\\VIAL IV PRN (08:21)
[2021-12-05] MEDS ORDERED: HYDROCODONE/ACETAMOPHEN 5/325MG TAB PO PRN (08:21)
[2021-12-05] MEDS ORDERED: PROMETHAZINE HCL 12.5 MG in SODIUM CHLORIDE 0.9% 50 ML IV PRN (08:21)
[2021-12-05] MEDS ORDERED: ACETAMINOPHEN 325 MG TAB PO PRN (08:21)
--- NOTE | 2021-12-05 08:22 | XRay Report ---
XR chest 1V portable CLINICAL HISTORY: SEPSIS. COMPARISON STUDY: 12/07/2016 TECHNIQUE: 1 view of the chest FINDINGS: Single frontal view of the chest demonstrates the cardiomediastinal silhouette to be within normal li mits. The lungs are clear of alveolar opacities. There is no evidence for pleural effusion. There is no evidence for vascular congestion. There is no acute osseous pathology. IMPRESSION: 1. No acute cardiopulmonary disease. ACT 112: Negative or not required by law. Electronically signed by: Storm Woodall M.D. 12/05/2021 8:20 AM
[2021-12-05] MEDS: VALSARTAN/SACUBITRIL 51/49 MG TAB PO SCH ×2 (09:52→21:00)
[2021-12-05] MEDS: ASPIRIN 81 MG ECTAB PO SCH (09:52)
--- NOTE | 2021-12-05 11:42 | Orthopedic Consultation ---
Date of Consultation December 05, 2021 Assessment & Plan (1) Headache: In discussing the patient's symptoms he admittedly really did not drink anything yesterday. I feel that with the nausea and emesis he was dehydrated. He had an elevated BUN on presentation and has a low blood pressure. Ivis ydration and monitoring his urine output are recommended. There is no evidence of a spontaneous spinal fluid leak. Please contact us if there are any other questions or concerns. History of Present Illness Attending Physician: Cori Ragland MD History of Present Illness Patient is a pleasant 61-year-old male who is postop day 2 status post lumbar decompression and fusion. He was discharged home yesterday afternoon. He started feeling nauseous at home and had vomited. He started then developing severe headaches. The pain is intractable and was brought to the emergency department. They performed a CT scan of his head with no evidence of bleed. And were concerned he may have a spinal headache. He still has his drain in place and had his original postoperative dressing in place as well. This morning he feels much better. He sitting on the edge of the bed. His dressing was being changed there is 20 cc of serosanguineous fluid in the bulb with a MIGUEL. He denies any other numbness, tingling, or paresthesias. Allergies Allergy/AdvReac Type Severity Reaction Status Date / Time cephalexin AdvReac Unknown Nausea, GI Verified 12/01/21 10:27 upset oxycodone AdvReac Unknown Severe N/V Verified 12/01/21 10:27 Home Medications Medication Instructions Recorded Confirmed Type aspirin 81 mg tablet,delayed 81 mg PO QAM 11/07/21 12/01/21 History release cholecalciferol (vitamin D3) 25 25 mcg PO QAM 11/07/21 12/01/21 History mcg (1,000 unit) tablet (Vitamin D3) magnesium 250 mg tablet 250 mg PO PM 11/07/21 12/01/21 History metoprolol succinate 25 mg 25 mg PO PM 11/07/21 12/01/21 History tablet,extended release 24 hr sacubitril 49 mg-valsartan 51 mg 1 tab PO BID 11/07/21 12/01/21 History tablet (Entresto) tamsulosin 0.4 mg capsule 0.4 mg PO PM 11/07/21 12/01/21 History hydrocodone 5 mg-acetaminophen 325 1 tab PO Q6H PRN #30 tab 12/02/21 Rx mg tablet tramadol 50 mg tablet 50 mg PO Q6H PRN #30 tab 12/02/21 Rx Patient History Medical History Acid reflux Mild > no meds Stable and controlled BPH (benign prostatic hyperplasia) Cervical stenosis of spinal canal Numbness in arms at times History of COVID-19 05/2020 Possible ischemic CM may have resulted from Covid Kidney stones No recent issues 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 Serna with [facility] PVCs (premature ventricular contractions) S/p ablation 11/2020 per cardio records - significant reduction in PVC burden Surgical History H/O cardiac radiofrequency ablation November 2020 > [facility] History of arthroscopy knee x2 History of cardiac cath August 2020 > no stents > [facility] History of colonoscopy Hx of fusion of cervical spine approx 7 yrs ago > ROM not limited per pt's report Hx of hand surgery left > tendon repair from work accident Family History Father Colon cancer Social History Smoking Status: Never smoker Second Hand Exposure: No; Hx Alcohol Use: No Hx Substance Use: No Preferred Language: Pashto Communication Ability: Effective Residency Director Required: No Beliefs That Will Affect Care: None marital status: Current Living Situation: Spouse Other Information That Helps Us Care for You: No Feels Safe at Home: Yes Safety Concerns: Feels Safe At This Time Assistive Devices: Glasses and Walker Assistive Devices Comment: dental bridge Physical Exam Physical Exam: On exam his incision is benign. No erythema is noted. No drainage noted. No fluid wave. There is 20 cc of serosanguineous pink drainage in the bulb. No clear fluid is noted. His strength and sensation are both intact he appears comfortable. His abdomen soft nontender his calves are supple nontender. Results & Data ([facility]) Vital Signs (Past 12 Hours) Vital Signs Temp Pulse Pulse Resp BP BP Pulse Ox 12/05/21 08:38 36.5 C 20 99/60 L 96 12/05/21 07:30 67 13 125/66 12/05/21 07:00 77 21 122/74 12/05/21 06:30 64 14 123/61 12/05/21 06:02 68 16 130/75 95 12/05/21 06:00 66 20 130/75 12/05/21 05:30 66 66 20 142/81 H 142/81 H 96 12/05/21 05:07 62 18 95 12/05/21 05:06 36.7 C 65 18 129/83 96 12/05/21 05:00 66 22 97 12/05/21 04:59 18 97 12/05/21 04:54 68 15 12/05/21 03:38 36.2 C L 72 16 123/75 99 (1) Headache Headache chronicity pattern: acute headache Headache type: unspecified Intractability: intractable Qualified Code(s): R51.9 - Headache, unspecified
--- NOTE | 2021-12-05 12:41 | Electrocardiogram Report ---
Test Reason : Blood Pressure : / mmHG Vent. Rate : 063 BPM Atrial Rate : 063 BPM P-R Int : 132 ms QRS Dur : 092 ms QT Int : 410 ms P-R-T Axes : 086 039 067 degrees QTc Int : 419 ms Poor data quality, interpretation may be adversely affected Normal sinus rhythm Nonspecific ST abnormality Abnormal ECG When compared with ECG of 01-DEC-2021 10:41, T wave inversion no longer evident in Inferior leads Confirmed by Chidi Echavarria ([id number]) on 12/05/2021 12:41:28 PM Referred By: REFERRED SELF Confirmed By:Chidi Echavarria
--- NOTE | 2021-12-05 16:30 | Communication Note ---
Date of Service: December 05, 2021 Admitted with the bifrontal headache without any associated symptoms with a status post recent back surgery. Headache is resolved and denies any other significant symptoms. We will observe in the medical floor and a full progress note will be done tomorrow. DR Elli Ragland
[2021-12-05] MEDS ORDERED: TAMSULOSIN HCL 0.4 MG CAP PO SCH (21:00)
[2021-12-05] MEDS ORDERED: METOPROLOL SUCC 25MG EXT REL TAB PO SCH (21:00)
[2021-12-06 05:54] LABS: Basophils # (auto) 0.01 K/uL (0-0.2); Basophils % (auto) 0.1 %; Eosinophils # (auto) 0.27 K/uL (0-0.5); Eosinophils % (auto) 3.7 %; Hematocrit (blood only) 32.4 % (42-52); Hemoglobin 11.2 g/dL (14.0-18.0); Immature Granulocytes # (auto) 0.01 K/uL (0.00-0.02); Immature Granulocytes % (auto) 0.1 %; Lymphocytes # (auto) 1.57 K/uL (1.2-3.4); Lymphocytes % (auto) 21.6 %; Mean Corpuscular Hemoglobin 31.2 pg (25-34); Mean Corpuscular Hgb Conc 34.6 g/dL (32-36); Mean Corpuscular Volume 90.3 fL (80-100); Mean Platelet Volume 9.2 fL (7.4-10.4); Monocytes # (auto) 1.01 K/uL (0.11-0.59); Monocytes % (auto) 13.9 %; Neutrophils # (auto) 4.41 K/uL (1.4-6.5); Neutrophils % (auto) 60.6 %; Platelet Count 213 K/uL (130-400); RDW Coefficient of Variation 13.2 % (11.5-14.5); Red Blood Count 3.59 M/uL (4.7-6.1); White Blood Count 7.28 K/uL (4.8-10.8)
[2021-12-06 06:13] LABS: BUN Creatinine Ratio 30.1 (10-20); Calcium 8.1 mg/dl (8.5-10.1); Est GFR (African American) 109.3 ml/min; Est GFR (Non-African American) 94.3 ml/min; Potassium 4.1 mmol/L (3.5-5.1)
[2021-12-06] MEDS: ASPIRIN 81 MG ECTAB PO SCH (08:14)
[2021-12-06] MEDS: VALSARTAN/SACUBITRIL 51/49 MG TAB PO SCH (08:14)
--- NOTE | 2021-12-06 10:26 | Hospitalist Progress Note ---
Date of Service December 06, 2021 Assessment & Plan (1) Headache: Plan: Possible spinal/postdural headache Recent back surgery No significant headache since admission Did not have any associated neurological symptoms or any visual symptoms of the headache Has been ambulating in the room and in the hallway without any significant problem Appreciate Ortho input and recommendation Be discharged home this afternoon Chronic systolic heart failure secondary to nonischemic cardiomyopathy, patient on the dry side No acute symptoms Hypertension, stable Blood pressure remains stable on medication History of PVCs status post ablation BPH on Flomax Chronic anemia, hemoglobin at baseline DVT prophylaxis. SCDs Re: Recent spine surgery Full code Remains stable without any significant symptoms Will be discharged home this afternoon Admission and Anticipated Discharge Date Admission Date: December 05, 2021 Subjective 12/06/2021 The patient was seen and examined in medical floor He has been feeling much better since admission Has minimal dull headache in the frontal areas without any associated symptoms He has been ambulating in the room and in the hallway without any significant problem Review of Systems Review of Systems: All systems reviewed and are unremarkable except as noted below Neurologic: No headache and no more neurological symptoms Physical Exam Physical Exam: Lying in bed comfortably Constitutional: well developed, well nourished and average body habitus; not ill appearing Eyes: PERRL, conjunctivae normal, anicteric sclerae ENMT: external ear and nose normal, oropharynx normal Neck: trachea midline, no thyromegaly Respiratory: no respiratory distress Auscultation: lungs clear to auscultation bilaterally Cardiovascular: Rate/Rhythm: regular rate and regular rhythm; not tachycardic Heart Sounds: normal S1 and normal S2; no murmur Extremities: no edema Gastrointestinal (Abdomen): Inspection/Auscultation: normal bowel sounds; ab domen not distended Percussion/Palpation: abdomen soft; abdomen nontender Musculoskeletal: No acute arthritis in any joint Neurologic: Alert, awake and oriented x3. No focal sensory no motor deficit appreciated Psychiatric: A+Ox3, euthymic affect Lymphatic: no cervical or axillary lymphadenopathy Results & Data Results & Data ([facility]) Vital Signs (Past 12 Hours) Vital Signs Temp Pulse Resp BP Pulse Ox 12/06/21 07:58 36.6 C 71 16 121/74 96 Laboratory Results Short CBC 12/06/21 Range/Units 05:30 WBC 7.28 (4.8-10.8) K/uL Hgb 11.2 L (14.0-18.0) g/dL Hct 32.4 L (42-52) % Plt Count 213 (130-400) K/uL [facility] 12/06/21 05:30 Sodium 137 Potassium 4.1 Chloride 107 Carbon Dioxide 26 BUN 25 H Creatinine 0.83 Glucose 90 Calcium 8.1 L Medications Administered Current Inpatient Medications Acetaminophen (Acetaminophen 325 Mg Tab) 650 mg PO Q6H PRN PRN Reason: Fever/pain Stop: 01/04/22 08:20 Last Admin: 12/05/21 22:21 Dose: 650 mg Documented by: Hydrocodone Bitart/Acetaminophen (Hydrocodone/Acetamophen 5/325mg Tab) 1 tab PO QID PRN PRN Reason: Pain Stop: 12/19/21 08:20 Aspirin (Aspirin 81 Mg Ectab) 81 mg PO QAM [facility] Stop: 01/04/22 08:59 Last Admin: 12/06/21 08:14 Dose: 81 mg Documented by: Promethazine HCl 12.5 mg/ (Sodium Chloride) 50.5 mls @ 202 mls/hr IV Q6H PRN PRN Reason: Nausea And Vomiting Stop: 01/04/22 08:20 Metoprolol Succinate (Metoprolol Succ 25mg Ext Rel Tab) 25 mg PO PM HALIE Stop: 01/04/22 20:59 Last Admin: 12/05/21 21:00 Dose: 25 mg Documented by: Morphine Sulfate (Morphine Sulfate 4 Mg/Ml 1 Ml Carp\Vial) 4 mg IV Q4H PRN PRN Reason: Pain Stop: 12/19/21 08:20 Sacubitril/Valsartan (Valsartan/Sacubitril 51/49 Mg Tab) 1 tab PO BID [facility] Stop: 01/04/22 08:59 Last Admin: 12/06/21 08:14 Dose: 1 tab Documented by: Tamsulosin HCl (Tamsulosin Hcl 0.4 Mg Cap) 0.4 mg PO PM [facility] Stop: 01/04/22 20:59 Last Admin: 12/05/21 21:00 Dose: 0.4 mg Documented by: (1) Headache Headache chronicity pattern: acute headache Headache type: unspecified Intractability: intractable Qualified Code(s): R51.9 - Headache, unspecified
--- NOTE | 2021-12-06 17:38 | Discharge Summary ---
Date of Service December 06, 2021 Admission HPI Per Admitting Provider History obtained from patient, family, and records. Medical history significant for chronic systolic heart failure secondary to nonischemic cardiomyopathy (EF 45%, TTE 2021), hypertension, history of PVCs status post ablation, BPH, chronic anemia (baseline hemoglobin of 13). Recent confinement December 01- 2021 under Orthopedics spine service for L SS status post decompression surgery. Unremarkable postop course in the hospital. Patient noted achy frontal headache symptoms worse on moving around upon arrival at home. Some chills. No actual fever. No chest pain, no SOB. Subsequent nausea, emesis symptoms. Highest SBP at home 150s as per . No prior episodes as per patient. Patient brought to the ER for evaluation by because of intractable symptoms. Medical History as above Surgical History : Lumbar decompression, cervical spine surgery, hydrocele surgery, knee surgery, umbilical hernia repair Family History : Colon cancer, breast cancer Personal/Social history : Non-smoker, occasional EtOH intake, batch mixing truck driver Admission Exam Per Admitting Provider Physical Exam: , GENERAL: Comfortable, pleasant, obese, no respiratory distress SKIN: Pallor, warm HEENT: [place] palpebral conjunctivae, no ptosis, dry buccal mucosa NECK : Supple, no tenderness CHEST : CTA, no tenderness HEART : RRR, no obvious murmurs ABDOMEN: Some distention, nontender EXTREMITIES : No LE swelling/tenderness, no other conspicuous deformities noted NEUROLOGIC : Coherent, no facial asymmetry, no other gross focality Principal Diagnosis Headache-resolved, status post recent spinal surgery Discharge Exam Lying in bed comfortably Constitutional well developed, well nourished and average body habitus; not ill appearing Eyes PERRL, conjunctivae normal, anicteric sclerae ENMT external ear and nose normal, oropharynx normal Neck trachea midline, no thyromegaly Respiratory no respiratory distress Auscultation: lungs clear to auscultation bilaterally Cardiovascular Rate/Rhythm: regular rate and regular rhythm; not tachycardic Heart Sounds: normal S1 and normal S2; no murmur Extremities: no edema Gastrointestinal (Abdomen) Inspection/Auscultation: normal bowel sounds; abdomen not distended Percussion/Palpation: abdomen soft; abdomen nontender Psychiatric A+Ox3, euthymic affect Lymphatic no cervical or axillary lymphadenopathy Discharge Data Allergies Allergy/AdvReac Type Severity Reaction Status Date / Time cephalexin AdvReac Unknown Nausea, GI Verified 12/01/21 10:27 upset oxycodone AdvReac Unknown Severe N/V Verified 12/01/21 10:27 Consultations 12/05/21 06:04 ED Decision to Admit Stat 12/05/21 06:53 Consult Orthopedic Surgery Routine Ordered Studies 12/05/21 03:56 CT head/brain wo con Urgent Hospital Course (1) Headache: Possible spinal/postdural headache Recent back surgery No significant headache since admission Did not have any associated neurological symptoms or any visual symptoms of the headache Has been ambulating in the room and in the hallway without any significant problem Appreciate Ortho input and recommendation Be discharged home this afternoon Chronic systolic heart failure secondary to nonischemic cardiomyopathy, patient on the dry side No acute symptoms Hypertension, stable Blood pressure remains stable on medication History of PVCs status post ablation BPH on Flomax Chronic anemia, hemoglobin at baseline DVT prophylaxis. SCDs Re: Recent spine surgery Full code Remains stable without any significant symptoms Will be discharged home this afternoon Total Time Total Time Spent Total Time Spent (In Minutes): 35 minutes Discharge Plan Discharge Items Patient Disposition: Home - Self-Care Reason For Visit: Spinal surgery, headache and stomach pain followed Discharge Diagnosis: Headache-resolved, status post recent spinal surgery Condition on Discharge: Good Activity: Resume your previous activity Non-emergency contact: Primary Care Provider and Corporate Specialist Call non-emergency contact if: you have any medication questions and your symptoms worsen Follow-up/Referrals: Girma Vences MD [Primary Care Provider] - (Please make an appointment with your primary care doctor within 7 days) Diet: Heart Healthy Addtl Attending Provider Instructions: Please take precautions to avoid falls Please give appointment with your healthcare providers You can try Tylenol for occasional headache Pending Studies at Discharge: No Stand-Alone Forms: My [employer], Smoking Cessation Medications and DC Order Prescriptions: Continued aspirin 81 mg Tablet,Delayed Release (Dr/Ec) 81 mg PO QAM RF: 0 tamsulosin 0.4 mg Capsule 0.4 mg PO PM RF: 0 magnesium 250 mg Tablet 250 mg PO PM RF: 0 metoprolol succinate 25 mg Tablet Extended Release 24 Hr 25 mg PO PM RF: 0 cholecalciferol (vitamin D3) [Vitamin D3] 25 mcg (1,000 unit) Tablet 25 mcg PO QAM RF: 0 Entresto 49-51 mg Tablet 1 tab PO BID RF: 0 hydrocodone-acetaminophen 5-325 mg tablet 1 tab PO Q6H PRN (Reason: pain) Qty: 30 RF: 0 tramadol 50 mg tablet 50 mg PO Q6H PRN (Reason: pain, moderate) Qty: 30 RF: 0 Discharge Orders: Discharge Order (Routine); Ordered 12/06/21 Ordered By: Cori Carrasquillo/Other Patient Handouts: Dehydration Admission Data Admit Date/Time: 12/05/21 06:51 Attending Provider: Cori Ragland Admit Provider: Ben Henderson Primary Care Provider: Girma Vences Other Providers: Ben Henderson ; Casey Low Other Interventions: Discharge Summary Assessment (RN) Last Done: 12/06/21 11:28
== END 2021-12-06 12:13 | disposition home or self-care (01) ==
LOC: 3E 03:34 → ED 03:34 → 3E 07:55